=== PATIENT | female | born 1945 | race African-American/Black ===

== ENCOUNTER 2018-11-06 06:48 | Emergency (ER) | payer MEDICARE ==
[2018-11-06 07:32] LABS: Absolute Lymphocytes (CBC) 0.6 K/uL (0.7-4.9); Eosinophils % 3.3 % (0-4.4); Hematocrit 36.1 % (36.0-45.0); Lymphocytes % 12.3 % (15.3-44.8); MPV 8.2 fL (7.6-11.3); Monocytes % 8.3 % (3.3-12.3); RBC Red Blood Cell Count 3.98 M/uL (3.86-4.86)
--- NOTE | 2018-11-06 07:32 | EKG ---
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
[2018-11-06 07:38] LABS: Protime INR 1.05
[2018-11-06 07:52] LABS: ALT/SGPT 26 U/L (12-78); AST/SGOT 42 U/L (15-37); Albumin 3.5 g/dL (3.4-5.0); Alkaline Phosphatase 96 U/L (45-117); BUN Blood Urea Nitrogen 14 mg/dL (7-18); Bicarbonate 22 mmol/L (21-32); Bilirubin Direct 0.2 mg/dL (0-0.2); Bilirubin Total 0.6 mg/dL (0.2-1.0); Glucose Level 103 mg/dL (74-106); Magnesium 2.1 mg/dL (1.8-2.4); NT PRO-BNP 214 pg/mL (<125); Potassium 4.3 mmol/L (3.5-5.1); Protein, Total 7.2 g/dL (6.4-8.2); Sodium Level 139 mmol/L (136-145); Troponin (Emerg Dept Use Only) < 0.02 ng/mL (0.0-0.045)
--- NOTE | 2018-11-06 08:46 | RAD REPORT ---
EXAM DESCRIPTION: RAD - Chest Single View - 11/06/2018 7:17 am CLINICAL HISTORY: Chest pain, shortness of breath COMPARISON: November 2013 TECHNIQUE: AP portable chest image was obtained 0710 hours . FINDINGS: Lungs are clear. Heart and vasculature are normal. No measurable pleural effusion and no p neumothorax. No acute bony abnormality seen. No acute aortic findings suspected. IMPRESSION: No acute cardiopulmonary process. Chest is not substantially different from comparison.
--- NOTE | 2018-11-06 10:00 | EDPHYS ---
Physician Documentation [facility] Name: Trang Burr Age: 73 yrs Sex: Female : 1945 Arrival Date: 11/06/2018 Time: 06:50 Bed 5 Private MD: Wilner Damon E ED Physician Chucho Roger HPI: 11/06 06:59 This 73 yrs old Black Female presents to ER via EMS with complaints of Nausea/Vomiting. pm1 06:59 Onset: The symptoms/episode began/occurred nausea with one episode of vomiting today. pm1 Possible causes: unknown. The symptoms are aggravated by nothing. The symptoms are alleviated by nothing. Patient presenting today with complaints of shortness of breath for 3 weeks. Constant chest pain for 2 weeks. Onset of vomiting x 1 with nausea this AM. Patient with appointment with Dr. Jacob at 0845 today but felt that she would not be able to go. Historical: - Allergies: 06:56 No Known Allergies; fc - Home Meds: 06:56 Bystolic 10 mg oral tab 1 tab once daily [Active]; 3 diff. eye drops [Active]; fc - PMHx: 06:56 Cellulitis; Hypertension; Lymphadema; Colon Cancer; fc - PSHx: 06:56 Bowel resection; colostomy with reversal; fc - Immunization history:: Last tetanus immunization: unknown. - Social history:: Smoking status: Patient/guardian denies using tobacco, Patient/guardian denies using alcohol, street drugs. - Ebola Screening: : Patient negative for fever greater than or equal to 101.5 degrees Fahrenheit, and additional compatible Ebola Virus Disease symptoms Patient denies exposure to infectious person Patient denies travel to an Ebola-affected area in the 21 days before illness onset. ROS: 06:59 Constitutional: Negative for fever, chills, and weight loss, Eyes: Negative for injury, pm1 pain, redness, and discharge, ENT: Negative for injury, pain, and discharge, Neck: Negative for injury, pain, and swelling. 06:59 Back: Negative for injury and pain, : Negative for injury, bleeding, discharge, and swelling, MS/Extremity: Negative for injury and deformity, Skin: Negative for injury, rash, and discoloration, Neuro: Negative for headache, weakness, numbness, tingling, and seizure. 06:59 Cardiovascular: Positive for chest pain, Negative for edema, orthopnea, palpitations. 06:59 Respiratory: Positive for shortness of breath, Negative for cough, sputum production, wheezing. 06:59 Abdomen/GI: Positive for nausea and vomiting, Negative for abdominal pain, diarrhea, constipation. Exam: 06:59 Constitutional: This is a well developed, well nourished patient who is awake, alert, pm1 and in no acute distress. Head/Face: Normocephalic, atraumatic. Eyes: Pupils equal round and reactive to light, extra-ocular motions intact. Lids and lashes normal. Conjunctiva and sclera are non-icteric and not injected. Cornea within normal limits. Periorbital areas with no swelling, redness, or edema. ENT: Nares patent. No nasal discharge, no septal abnormalities noted. Tympanic membranes are normal and external auditory canals are clear. Oropharynx with no redness, swelling, or masses, exudates, or evidence of obstruction, uvula midline. Mucous membranes moist. Neck: Trachea midline, no thyromegaly or masses palpated, and no cervical lymphadenopathy. Supple, full range of motion without nuchal rigidity, or vertebral point tenderness. No Meningismus. Chest/axilla: Normal chest wall appearance and motion. Nontender with no deformity. No lesions are appreciated. Cardiovascular: Regular rate and rhythm with a normal S1 and S2. No gallops, murmurs, or rubs. Normal PMI, no JVD. No pulse deficits. Respiratory: Lungs have equal breath sounds bilaterally, clear to auscultation and percussion. No rales, rhonchi or wheezes noted. No increased work of breathing, no retractions or nasal flaring. Abdomen/GI: Soft, non-tender, with normal bowel sounds. No distension or tympany. No guarding or rebound. No evidence of tenderness throughout. Back: No spinal tenderness. No costovertebral tenderness. Full range of motion. Skin: Warm, dry with normal turgor. Normal color with no rashes, no lesions, and no evidence of cellulitis. MS/ Extremity: Pulses equal, no cyanosis. Neurovascular intact. Full, normal range of motion. 06:59 Neuro: Orientation: is normal, Motor: is normal, Sensation: is normal, no obvious gross deficits. Vital Signs: 06:45 BP 134 / 42; Pulse 98; Resp 18; Temp 97.5(O); Pulse Ox 98% on R/A; Weight 108.86 kg fc (R); Height 5 ft. 1 in. (154.94 cm) (R); Pain 0/10; 07:45 BP 140 / 47; Pulse 82; Resp 13; Pulse Ox 100% ; bp 08:45 BP 103 / 59; Pulse 78; Resp 14; Pulse Ox 100% ; bp 09:45 BP 132 / 64; Pulse 81; Resp 14; Pulse Ox 100% ; bp 11:26 BP 158 / 73; Pulse 88; Resp 14; Temp 98; Pulse Ox 98% ; bp 06:45 Body Mass Index 45.35 (108.86 kg, 154.94 cm) fc MDM: 06:56 Patient medically screened. [facility] 08:00 Data reviewed: vital signs. Data interpreted: Pulse oximetry: on room air is 98 %. pm1 Interpretation: normal. 09:17 Counseling: I had a detailed discussion with the patient and/or guardian regarding: the pm1 historical points, exam findings, and any diagnostic results supporting the discharge/admit diagnosis, lab results, radiology results, the need for outpatient follow up, to return to the emergency department if symptoms worsen or persist or if there are any questions or concerns that arise at home. 11/06 07:02 Order name: Basic Metabolic Panel pm1 11/06 07:02 Order name: CBC with Diff pm1 11/06 07:02 Order name: LFT's pm1 11/06 07:02 Order name: Magnesium pm1 11/06 07:02 Order name: NT PRO-BNP; Complete Time: 08:06 pm1 11/06 07:02 Order name: PT-INR; Complete Time: 08:06 pm1 11/06 07:02 Order name: Troponin (emerg Dept Use Only); Complete Time: 08:06 pm1 11/06 07:02 Order name: XRAY Chest (1 view); Complete Time: 08:48 pm1 11/06 07:02 Order name: EKG; Complete Time: 07:04 pm1 11/06 07:02 Order name: Basic Metabolic Panel; Complete Time: 08:06 EDMS 11/06 07:03 Order name: CBC with Automated Diff; Complete Time: 08:06 EDMS 11/06 07:03 Order name: Liver (Hepatic) Function; Complete Time: 08:06 EDDC 11/06 07:04 Order name: Magnesium; Complete Time: 08:06 EDDC 11/06 07:02 Order name: Cardiac monitoring; Complete Time: 07:39 pm1 11/06 07:02 Order name: EKG - Nurse/Tech; Complete Time: 07:22 pm1 11/06 07:02 Order name: IV Saline Lock; Complete Time: 07:38 pm1 11/06 07:02 Order name: Labs collected and sent; Complete Time: 07:39 pm1 11/06 07:02 Order name: O2 Per Protocol; Complete Time: 07:39 pm1 11/06 07:02 Order name: O2 Sat Monitoring; Complete Time: 07:39 pm1 EC:01 Rate is 93 beats/min. Rhythm is regular. No Q waves. T waves are Normal. No ST changes pm1 noted. Clinical impression: Normal ECG. Administered Medications: 09:30 Drug: NS 0.9% 500 ml Route: IV; Rate: bolus; Site: right antecubital; bp 11:29 Follow up: IV Status: Completed infusion; IV Intake: 500ml bp Disposition: 11/06/18 09:59 Discharged to Home. Impression: Chest pain, unspecified, Weakness, Shortness of breath. - Condition is Stable. - Discharge Instructions: Nonspecific Chest Pain, Shortness of Breath, Weakness. - Medication Reconciliation Form, Thank You Letter, Antibiotic Education, Prescription Opioid Use form. - Follow up: Emergency Department; When: As needed; Reason: Worsening of condition. Follow up: Private Physician; When: 2 - 3 days; Reason: Recheck today's complaints, Continuance of care, Re-evaluation by your physician. - Problem is new. - Symptoms have improved. Addendum: 11/07/2018 13:56 Co-signature as Attending Physician, Chucho Roger MD I agree with the assessment and c harris plan of care. Signatures: Dispatcher [employer] Chucho Pace MD MD cha Chretien, Felicia, RN RN fc Connor Padilla, ADAM MUD TEMPERER pm1 Mu Rae RN RN bp Corrections: (The following items were deleted from the chart) 11/06 09:59 09:59 11/06/2018 09:59 Discharged to Home. Impression: Chest pain, unspecified; pm1 Weakness. Condition is Stable. Forms are Medication Reconciliation Form, Thank You Letter, Antibiotic Education, Prescription Opioid Use. Follow up: Emergency Department; When: As needed; Reason: Worsening of condition. Follow up: Private Physician; When: 2 - 3 days; Reason: Recheck today's complaints, Continuance of care, Re-evaluation by your physician. Problem is new. Symptoms have improved. pm1 11:30 09:59 11/06/2018 09:59 Discharged to Home. Impression: Chest pain, unspecified; bp Weakness; Shortness of breath. Condition is Stable. Forms are Medication Reconciliation Form, Thank You Letter, Antibiotic Education, Prescription Opioid Use. Follow up: Emergency Department; When: As needed; Reason: Worsening of condition. Follow up: Private Physician; When: 2 - 3 days; Reason: Recheck today's complaints, Continuance of care, Re-evaluation by your physician. Problem is new. Symptoms have improved. pm1
--- NOTE | 2018-11-06 10:00 | ER ---
[facility] Name: Trang Burr Age: 73 yrs Sex: Female : 1945 Arrival Date: 11/06/2018 Time: 06:50 Bed 5 Private MD: Wilner Damon E Diagnosis: Chest pain, unspecified;Weakness;Shortness of breath Presentation: 11/06 06:45 Presenting complaint: Patient states: that she has been having shortness of breath with fc exertion, decreased appetite, occasional tightness in chest and then started to have nausea with one episode of vomiting this am. Also having weakness. Transition of care: patient was not received from another setting of care. Onset of symptoms was September 2018. Risk Assessment: Do you want to hurt yourself or someone else? Patient reports no desire to harm self or others. Initial Sepsis Screen: Does the patient meet any 2 criteria? HR > 90 bpm. Yes Does the patient have a suspected source of infection? No. Patient's initial sepsis screen is negative. Care prior to arrival: None. 06:45 Method Of Arrival: EMS: [facility] 06:45 Acuity: REYNALDO 3 fc Triage Assessment: 07:00 General: Appears in no apparent distress. comfortable, obese, Behavior is calm, bp cooperative, appropriate for age, RECD REPORT FROM IZZY ADAMES. Pain: Complains of pain in chest. EENT: No deficits noted. Neuro: Level of Consciousness is awake, alert, obeys commands, Oriented to person, place, time, situation, Appropriate for age. Cardiovascular: Rhythm is sinus rhythm. Respiratory: Reports shortness of breath at rest Airway is patent Respiratory effort is even, unlabored, Respiratory pattern is regular, symmetrical. GI: Reports nausea. : No signs and/or symptoms were reported regarding the genitourinary system. Derm: No deficits noted. Musculoskeletal: Circulation, motion, and sensation intact. Range of motion: intact in all extremities. Historical: - Allergies: 06:56 No Known Allergies; fc - Home Meds: :56 Bystolic 10 mg oral tab 1 tab once daily [Active]; 3 diff. eye drops [Active]; fc - PMHx: 06:56 Cellulitis; Hypertension; Lymphadema; Colon Cancer; fc - PSHx: 06:56 Bowel resection; colostomy with reversal; fc - Immunization history:: Last tetanus immunization: unknown. - Social history:: Smoking status: Patient/guardian denies using tobacco, Patient/guardian denies using alcohol, street drugs. - Ebola Screening: : Patient negative for fever greater than or equal to 101.5 degrees Fahrenheit, and additional compatible Ebola Virus Disease symptoms Patient denies exposure to infectious person Patient denies travel to an Ebola-affected area in the 21 days before illness onset. Screenin:45 Abuse screen: Denies threats or abuse. Nutritional screening: No deficits noted. Tuberculosis screening: No symptoms or risk factors identified. 07:00 Fall Risk No fall in past 12 months (0 pts). No secondary diagnosis (0 pts). No IV (0 bp pts). Ambulatory Aid- Crutches/Cane/Walker (15 pts). Gait- Weak (10 pts.). Mental Status- Oriented to own ability (0 pts). Total San Fall Scale indicates Low Risk Score (25-44 pts). Fall prevention measures have been instituted. Side Rails Up X 2 Placed close to Nursing Station Frequent Obs/Assesments occuring As available Patient and Family Educated on Fall Prevention Program and strategies. Assessment: 07:00 General: SEE TRIAGE NOTE. bp 07:45 Reassessment: ALL CURRENT ORDERS COMPLETED, RESULT SPENDING. bp 09:45 Reassessment: PT STATES DEHYDRATED, REQUESTING IVF. PROVIDER NOTIFIED. bp 11:26 Reassessment: IVF COMPLETED, PT D/C HOME VIA W/C WITH CAREGIVER, DX WITH NONSPECIFIC CP.bp Vital Signs: 06:45 BP 134 / 42; Pulse 98; Resp 18; Temp 97.5(O); Pulse Ox 98% on R/A; Weight 108.86 kg (R); Height 5 ft. 1 in. (154.94 cm) (R); Pain 0/10; 07:45 BP 140 / 47; Pulse 82; Resp 13; Pulse Ox 100% ; bp 08:45 BP 103 / 59; Pulse 78; Resp 14; Pulse Ox 100% ; bp 09:45 BP 132 / 64; Pulse 81; Resp 14; Pulse Ox 100% ; bp 11:26 BP 158 / 73; Pulse 88; Resp 14; Temp 98; Pulse Ox 98% ; bp 06:45 Body Mass Index 45.35 (108.86 kg, 154.94 cm) ED Course: 06:45 Arm band placed on Patient placed in an exam room, on a stretcher. fc 06:45 Patient has correct armband on for positive identification. Placed in gown. Bed in low fc position. Call light in reach. Side rails up X2. vehicle monitor technician on. Pulse ox on. NIBP on. 06:45 No provider procedures requiring assistance completed. fc 06:50 Patient arrived in ED. fc 06:51 Wilner Damon MD is Private Physician. fc 06:51 [facility]. pm1 06:51 Chucho Roger MD is Attending Physician. pm1 06:52 Triage completed. fc 07:00 IV discontinued, intact, bleeding controlled, No redness/swelling at site. Pressure bp dressing applied. 07:13 X-ray completed. Portable x-ray completed in exam room. Patient tolerated procedure jb2 well. 07:17 XRAY Chest (1 view) In Process Unspecified. EDMS 07:20 Inserted saline lock: 20 gauge in right antecubital area, using aseptic technique. bp Blood collected. 07:38 Mu Rae, RN is Primary Nurse. bp Administered Medications: 09:30 Drug: NS 0.9% 500 ml Route: IV; Rate: bolus; Site: right antecubital; bp 11:29 Follow up: IV Status: Completed infusion; IV Intake: 500ml bp Intake: 11:29 IV: 500ml; Total: 500ml. bp Outcome: 07:00 Discharged to home via wheelchair, with family. 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 Demonstrated understanding of instructions, follow-up care. 09:59 Discharge ordered by . pm1 11:30 Patient left the ED. bp Signatures: Dispatcher [employer] EDMS Asif Kenney jb2 Penelope Perez RN RN Connor Padilla NP STEEL DIVISION SUPERVISOR pm1 Mu Rae, ZACARIAS ADAMES bp
[2018-11-06] MEDS ORDERED: NA CHLORIDE 0.9% 500 ML ONE (10:09)
[2018-11-06 11:43] VITALS: BP 158/73; TEMP 98; O2SAT 98
== END 2018-11-06 11:30 | disposition home or self-care (01) ==
LOC: ER 06:48
DX: R07.9 Chest pain, unspecified (principal); R53.1 Weakness; R06.02 Shortness of breath; I10 Essential (primary) hypertension; Z85.038 Personal history of other malignant neoplasm of large intestine
CPT/HCPCS: 36415; 71045; 80048; 80076; 83735; 83880; 84484; 85025; 85610; 93005; 96360; 96361; 99284

== ENCOUNTER 2018-11-21 12:11 | Inpatient (IN) | payer MEDICARE ==
[2018-11-21] MEDS ORDERED: NA CHLORIDE 0.9% 500 ML ONE (13:38)
[2018-11-21] MEDS ORDERED: NA CHLORIDE 0.9% 1,000 ML ONE (13:38)
[2018-11-21 13:42] LABS: Absolute Lymphocytes (CBC) 0.6 K/uL (0.7-4.9); Basophils % 0.7 % (0-1.3); Eosinophils % 2.1 % (0-4.4); Hematocrit 39.6 % (36.0-45.0); Lymphocytes % 9.1 % (15.3-44.8); Monocytes % 7.7 % (3.3-12.3); Protime INR 1.01; RBC Red Blood Cell Count 4.35 M/uL (3.86-4.86)
[2018-11-21 13:57] LABS: ALT/SGPT 39 U/L (12-78); AST/SGOT 73 U/L (15-37); Albumin 3.6 g/dL (3.4-5.0); Alkaline Phosphatase 105 U/L (45-117); BUN Blood Urea Nitrogen 16 mg/dL (7-18); Bicarbonate 22 mmol/L (21-32); Bilirubin Direct 0.4 mg/dL (0-0.2); Bilirubin Total 1.1 mg/dL (0.2-1.0); Glucose Level 84 mg/dL (74-106); Lipase 49 U/L (73-393); Magnesium 2.3 mg/dL (1.8-2.4); NT PRO-BNP 168 pg/mL (<125); Potassium 4.3 mmol/L (3.5-5.1); Protein, Total 7.6 g/dL (6.4-8.2); Sodium Level 139 mmol/L (136-145); Troponin (Emerg Dept Use Only) < 0.02 ng/mL (0.0-0.045)
[2018-11-21] MEDS ORDERED: ONDANSETRON 4 MG/2 ML VIAL ONE (14:35)
--- NOTE | 2018-11-21 14:36 | EDPHYS ---
Physician Documentation [facility] Name: Trang Burr Age: 73 yrs Sex: Female : 1945 Arrival Date: 11/21/2018 Time: 12:15 Bed 2 Private MD: ONI Physician Chucho Roger HPI: 11/21 13:03 This 73 yrs old Black Female presents to ER via EMS with complaints of weak, nausea, robert vomiting and abdominal pain. 13:03 The patient presents to the emergency department with nausea, vomiting, abdominal pain, robert of the right upper quadrant, left upper quadrant, right lower quadrant and left lower quadrant. Onset: The symptoms/episode began/occurred 3 day(s) ago. Possible causes: unknown. The symptoms are aggravated by food , The symptoms are alleviated by remaining still. weak, anorexia. Associated signs and symptoms: Pertinent positives: anorexia, nausea. Onset: The symptoms/episode began/occurred 1 month(s) ago. Severity of symptoms: At their worst the symptoms were mild in the emergency department the symptoms are unchanged. The patient has experienced similar episodes in the past, multiple times. Historical: - Allergies: 12:19 Ampicillin; aj - Home Meds: 12:19 3 diff. eye drops [Active]; Bystolic 10 mg Oral tab 1 tab once daily [Active]; aj - PMHx: 12:19 Cellulitis; colon cancer; Hypertension; Lymphadema; aj - PSHx: 12:19 Bowel resection; colostomy with reversal; aj - Immunization history:: Adult Immunizations up to date. - Social history:: Smoking status: Patient/guardian denies using tobacco. - Ebola Screening: : Patient negative for fever greater than or equal to 101.5 degrees Fahrenheit, and additional compatible Ebola Virus Disease symptoms Patient denies exposure to infectious person Patient denies travel to an Ebola-affected area in the 21 days before illness onset No symptoms or risks identified at this time. - Family history:: not pertinent. ROS: 13:03 Constitutional: Negative for fever, chills, and weight loss, Eyes: Negative for injury, robert pain, redness, and discharge, ENT: Negative for injury, pain, and discharge, Neck: Negative for injury, pain, and swelling, Cardiovascular: Negative for chest pain, palpitations, and edema, Respiratory: Negative for shortness of breath, cough, wheezing, and pleuritic chest pain, Back: Negative for injury and pain, : Negative for injury, bleeding, discharge, and swelling, MS/Extremity: Negative for injury and deformity, Skin: Negative for injury, rash, and discoloration, Psych: Negative for depression, anxiety, suicide ideation, homicidal ideation, and hallucinations, Allergy/Immunology: Negative for hives, rash, and allergies, Endocrine: Negative for neck swelling, polydipsia, polyuria, polyphagia, and marked weight changes. 13:03 Abdomen/GI: Positive for nausea and vomiting, anorexia. 13:03 Neuro: Positive for weakness. Exam: 13:03 Constitutional: This is a well developed, well nourished patient who is awake, alert, robert and in no acute distress. Head/Face: Normocephalic, atraumatic. Eyes: Pupils equal round and reactive to light, extra-ocular motions intact. Lids and lashes normal. Conjunctiva and sclera are non-icteric and not injected. Cornea within normal limits. Periorbital areas with no swelling, redness, or edema. ENT: Nares patent. No nasal discharge, no septal abnormalities noted. Tympanic membranes are normal and external auditory canals are clear. Oropharynx with no redness, swelling, or masses, exudates, or evidence of obstruction, uvula midline. Mucous membranes moist. Neck: Trachea midline, no thyromegaly or masses palpated, and no cervical lymphadenopathy. Supple, full range of motion without nuchal rigidity, or vertebral point tenderness. No Meningismus. Chest/axilla: Normal chest wall appearance and motion. Nontender with no deformity. No lesions are appreciated. Cardiovascular: Regular rate and rhythm with a normal S1 and S2. No gallops, murmurs, or rubs. Normal PMI, no JVD. No pulse deficits. Respiratory: Lungs have equal breath sounds bilaterally, clear to auscultation and percussion. No rales, rhonchi or wheezes noted. No increased work of breathing, no retractions or nasal flaring. Abdomen/GI: Soft, non-tender, with normal bowel sounds. No distension or tympany. No guarding or rebound. No evidence of tenderness throughout. Back: No spinal tenderness. No costovertebral tenderness. Full range of motion. Female : Normal external genitalia. Skin: Warm, dry with normal turgor. Normal color with no rashes, no lesions, and no evidence of cellulitis. MS/ Extremity: Pulses equal, no cyanosis. Neurovascular intact. Full, normal range of motion. Neuro: Awake and alert, GCS 15, oriented to person, place, time, and situation. Cranial nerves II-XII grossly intact. Motor strength 5/5 in all extremities. Sensory grossly intact. Cerebellar exam normal. Normal gait. Psych: Awake, alert, with orientation to person, place and time. Behavior, mood, and affect are within normal limits. 13:03 Musculoskeletal/extremity: Extremities: all appear grossly normal, with no appreciated pain with palpation, ROM: full passive range of motion, limited active range of motion, Circulation is intact in all extremities. Sensation intact. Compartment Syndrome exam of affected extremity: is normal. DVT Exam: No signs of deep vein thrombosis. no pain, no swelling, no tenderness, negative Homans' sign noted on exam, no appreciated bluish discoloration, no erythema, no increased warmth. Vital Signs: 12:17 BP 139 / 65; Pulse 87; Resp 20; Temp 97.4; Pulse Ox 100% on R/A; Weight 113.4 kg; ph 14:22 BP 138 / 75; Pulse 87; Resp 14; Pulse Ox 99% on R/A; aj 15:29 BP 143 / 80; Pulse 88; Resp 20; Temp 97.5; Pulse Ox 99% on R/A; ph MDM: 12:44 Patient medically screened. [facility] 13:03 Data reviewed: vital signs, nurses notes, lab test result(s), EKG, radiologic studies, [facility] plain films. 11/21 13:02 Order name: Basic Metabolic Panel; Complete Time: 14:08 [facility] 11/21 13:02 Order name: CBC with Diff [facility] 11/21 13:02 Order name: LFT's; Complete Time: 14:08 [facility] 11/21 13:02 Order name: Magnesium; Complete Time: 14:08 [facility] 11/21 13:02 Order name: NT PRO-BNP; Complete Time: 14:08 [facility] 11/21 13:02 Order name: PT-INR; Complete Time: 14:26 [facility] 11/21 13:02 Order name: Troponin (emerg Dept Use Only); Complete Time: 14:08 [facility] 11/21 13:02 Order name: Lipase; Complete Time: 14:08 [facility] 11/21 13:02 Order name: Abdomen Acute Series XRAY [facility] 11/21 13:02 Order name: Urine Culture [facility] 11/21 15:14 Order name: Urine Dipstick--Ancillary (enter results) 3 11/21 15:58 Order name: CBC Smear Scan [facility] 11/21 13:02 Order name: EKG; Complete Time: 13:05 [facility] 11/21 13:02 Order name: Cardiac monitoring; Complete Time: 13:27 [facility] 11/21 13:02 Order name: EKG - Nurse/Tech; Complete Time: 13:27 [facility] 11/21 13:02 Order name: IV Saline Lock; Complete Time: 13:27 [facility] 11/21 13:02 Order name: Labs collected and sent; Complete Time: 13:27 [facility] 11/21 13:02 Order name: O2 Per Protocol; Complete Time: 13:27 [facility] 11/21 13:02 Order name: O2 Sat Monitoring; Complete Time: 13:27 [facility] 11/21 13:02 Order name: Urine Dipstick-Ancillary (obtain specimen); Complete Time: 14:48 [facility] Administered Medications: 13:26 Drug: NS 0.9% 1000 ml Route: IV; Rate: 125 ml/hr; Site: right antecubital; aj 15:50 Follow up: Response: No adverse reaction; IV Status: Infusion continued upon admission ph 13:26 Drug: NS 0.9% 500 ml Route: IV; Rate: bolus; Site: right antecubital; aj 14:10 Follow up: Response: No adverse reaction; IV Status: Completed infusion; IV Intake: ph 500ml Disposition: 11/21/18 14:35 Hospitalization ordered by Arron Zhang for Inpatient Admission. Preliminary diagnosis are Anorexia, Weakness, Vomiting, Malaise and fatigue, Abdominal tenderness. - Bed requested for Telemetry/MedSurg (Inpatient). - Status is Inpatient Admission. iw - Condition is Fair. - Problem is new. - Symptoms have improved. UTI on Admission? No Signatures: Dispatcher [employer] Dedra Virgen RN Kinjal Owens RN RN aj Anderson, Corey, MD MD cha Williams, Irene, RN RN iw Hall, Patricia RN ph Corrections: (The following items were deleted from the chart) 15:24 14:35 Hospitalization Ordered by Arron Zhang DO for Inpatient Admission. Preliminary dw diagnosis is Anorexia; Weakness; Vomiting; Malaise and fatigue; Abdominal tenderness. Bed requested for Telemetry/MedSurg (Inpatient). Status is Inpatient Admission. Condition is Fair. Problem is new. Symptoms have improved. UTI on Admission? No. robert 16:05 15:24 11/21/2018 14:35 Hospitalization Ordered by Arron Zhang DO for Inpatient iw Admission. Preliminary diagnosis is Anorexia; Weakness; Vomiting; Malaise and fatigue; Abdominal tenderness. Bed requested for Telemetry/MedSurg (Inpatient). Status is Inpatient Admission. Condition is Fair. Problem is new. Symptoms have improved. UTI on Admission? No. dw
--- NOTE | 2018-11-21 14:36 | ER ---
Nurse's Notes [facility] Name: Trang Burr Age: 73 yrs Sex: Female : 1945 Arrival Date: 11/21/2018 Time: 12:15 Bed 2 Private MD: Diagnosis: Anorexia;Weakness;Vomiting;Malaise and fatigue;Abdominal tenderness Presentation: 11/21 12:16 Presenting complaint: Patient states: Loss of appetite for 3 weeks. Seen in this ER aj last week for same complaint and discharged with referral to PCP. Patient reports symptoms are persisting and she still has no appetite and is nauseated. Transition of care: patient was not received from another setting of care. Onset of symptoms was October 27, 2018. Risk Assessment: Do you want to hurt yourself or someone else? Patient reports no desire to harm self or others. Initial Sepsis Screen: Does the patient meet any 2 criteria? No. Patient's initial sepsis screen is negative. Does the patient have a suspected source of infection? No. Patient's initial sepsis screen is negative. Care prior to arrival: None. 12:16 Method Of Arrival: EMS: [facility] 12:16 Acuity: REYNALDO 3 aj Triage Assessment: 12:19 General: Appears in no apparent distress. comfortable, obese, Behavior is calm, aj cooperative, appropriate for age. Pain: Denies pain. Neuro: Level of Consciousness is awake, alert, obeys commands, Oriented to person, place, time, situation. Respiratory: Reports shortness of breath Airway is patent Trachea midline Respiratory effort is even, unlabored, Respiratory pattern is regular, symmetrical. GI: Abdomen is obese, Reports anorexia. Derm: Skin is intact, is healthy with good turgor, Skin is pink, warm \T\ dry. normal. Historical: - Allergies: 12:19 Ampicillin; aj - Home Meds: 12:19 3 diff. eye drops [Active]; Bystolic 10 mg Oral tab 1 tab once daily [Active]; aj - PMHx: 12:19 Cellulitis; colon cancer; Hypertension; Lymphadema; aj - PSHx: 12:19 Bowel resection; colostomy with reversal; aj - Immunization history:: Adult Immunizations up to date. - Social history:: Smoking status: Patient/guardian denies using tobacco. - Ebola Screening: : Patient negative for fever greater than or equal to 101.5 degrees Fahrenheit, and additional compatible Ebola Virus Disease symptoms Patient denies exposure to infectious person Patient denies travel to an Ebola-affected area in the 21 days before illness onset No symptoms or risks identified at this time. - Family history:: not pertinent. Screenin:21 Abuse screen: Denies threats or abuse. Denies injuries from another. Nutritional aj screening: No deficits noted. Tuberculosis screening: No symptoms or risk factors identified. Fall Risk None identified. Assessment: 13:20 Reassessment: No changes from previously documented assessment. aj 14:30 Reassessment: Patient appears in no apparent distress at this time. Patient and/or ph family updated on plan of care and expected duration. Pain level reassessed. Patient is alert, oriented x 3, equal unlabored respirations, skin warm/dry/pink. 15:43 Reassessment: Patient appears in no apparent distress at this time. Patient and/or ph family updated on plan of care and expected duration. Pain level reassessed. Patient is alert, oriented x 3, equal unlabored respirations, skin warm/dry/pink. Report called to Mk ADAMES on second floor. Vital Signs: 12:17 BP 139 / 65; Pulse 87; Resp 20; Temp 97.4; Pulse Ox 100% on R/A; Weight 113.4 kg; ph 14:22 BP 138 / 75; Pulse 87; Resp 14; Pulse Ox 99% on R/A; aj 15:29 BP 143 / 80; Pulse 88; Resp 20; Temp 97.5; Pulse Ox 99% on R/A; ph ED Course: 12:15 Patient arrived in ED. ph 12:15 Kinjal Molina, RN is Primary Nurse. aj 12:18 Triage completed. aj 12:19 Arm band placed on left wrist. Patient placed in an exam room, on a stretcher, on employment officer, on pulse oximetry. 12:44 Chucho Roger MD is Attending Physician. [facility] 13:21 Patient has correct armband on for positive identification. Bed in low position. Call aj light in reach. Side rails up X2. Adult w/ patient. Pulse ox on. NIBP on. 13:21 Inserted saline lock: 20 gauge in right antecubital area, using aseptic technique. aj Blood collected. 14:15 Abdomen Acute Series XRAY In Process Unspecified. EDMS 14:30 Prezas, Arron, DO is Hospitalizing Provider. robert 14:48 Straight cath inserted, using sterile technique, 16 Fr. Specimen obtained. Returned aj michele urine. Patient tolerated well. 15:29 No provider procedures requiring assistance completed. Patient admitted, IV remains in ph place. Administered Medications: 13:26 Drug: NS 0.9% 1000 ml Route: IV; Rate: 125 ml/hr; Site: right antecubital; aj 15:50 Follow up: Response: No adverse reaction; IV Status: Infusion continued upon admission ph 13:26 Drug: NS 0.9% 500 ml Route: IV; Rate: bolus; Site: right antecubital; aj 14:10 Follow up: Response: No adverse reaction; IV Status: Completed infusion; IV Intake: ph 500ml Intake: 14:10 IV: 500ml; Total: 500ml. ph Outcome: 14:35 Decision to Hospitalize by Provider. robert 16:05 Patient left the ED. iw Signatures: Dispatcher [employer] Kinjal Salamanca, RN Chucho Frederick MD MD cha Williams, Irene, RN ZACARIAS Rocio Sarkar RN RN
--- NOTE | 2018-11-21 14:40 | RAD REPORT ---
EXAM DESCRIPTION: RAD - Abdomen Acute Series - 11/21/2018 2:18 pm CLINICAL HISTORY: Abdominal pain, loss of appetite, colon cancer history, history of bowel resection COMPARISON: AP chest November 06 FINDINGS: No acute lung parenchymal process. Chronic atelectasis or scarring present in the left bas e. No failure or volume overload. Heart size and pulmonary vasculature are normal. No pleural effusio n, pneumothorax or other acute cardiopulmonary process seen. Bowel gas pattern is nonspecific. No bowel obstruction, free air or other acute findings. No suspicio us calcifications. No other suspicious for significant findings. IMPRESSION: Chest examination shows no acute or suspicious finding. Nonspecific bowel gas pattern. No obstruction, free air or pneumatosis seen.
--- NOTE | 2018-11-21 15:20 | P.HP ---
Certification for Inpatient Patient admitted to: Observation With expected LOS: <2 Midnights Patient will require the following post-hospital care: Home Health Services Practitioner: I am a practitioner with admitting privileges, knowledge of patient current condition, hospital course, and medical plan of care. Services: Services provided to patient in accordance with Admission requirements found in Title 42 Section 412.3 of the Code of Federal Regulations Patient History Date of Service: 11/21/18 Primary Care Provider: Dr. Damon; Cardiology-Dr. Jacob Reason for admission: Weakness, nausea and vomiting History of Present Illness: 73-year-old female presented to the emergency room with weakness, nausea and vomiting. Patient has been having nausea and vomiting for the past several days. She has had poor appetite. Poor intake noted. Patient during this time has noted difficulty walking with increased falls. She reports being in the hospital ER on November 06 and sent home. Since that time she has been getting weak. Patient with underlying lymphedema, anemia, history of colon cancer and hypertension. In the ER patient was evaluated. Vital signs stable. No fever noted. Room-air saturations within normal range. White count 6.1, hemoglobin 12.6. Sodium 139 , potassium 4.3, BUN of 14, creatinine 1.24 with a GFR 51. Glucose 84. Troponin unremarkable. BMP unremarkable. Acute abdominal series showed no acute findings. Patient admitted for observation. When I saw the patient in the ER, caregiver was at bedside. Patient appears stable at this time. Patient does not appear septic. She does appeared dry and dehydrated. Patient reports that she is mainly bed-bound at this time. It has been quite some time likely over a month since she is walked on rolling. She has used a walker in the past. Allergies ampicillin Adverse Reaction (Severe, Verified 12/15/13 14:53) Nausea/Vomiting No Known Allergies Allergy (Uncoded 03/20/17 21:07) Unknown Home medications list reviewed: Yes Home Medications: Bimatoprost [Lumigan Opthalmic Drops*] 2.5 ml OP BEDTIME 12/15/13 Nebivolol HCl [Bystolic*] 5 mg PO DAILY 12/15/13 Parsley/Garlic [Garlic & Parsley Tablet] 1 each PO DAILY 12/15/13 Muncy-3 Fatty Acids/Fish Oil [Fish Oil 1,000 mg Softgel] 1 each PO DAILY Dorzolamide HCl/Timolol Maleat [Cosopt Eye Drops] 10 ml EACH EYE BID 04/24/17 traMADol HCL [Ultram] 50 mg PO Q6H PRN 04/24/17 - Past Medical/Surgical History Diabetic: No -: Colon Ca (2002) -: Rectal Ca (2012) -: Glaucoma -: Hypertension -: Lymphedema -: Illiostomy (2012) -: Stents placed Bilateral eyes -: -: Reanastomosis Psychosocial/ Personal History: Patient lives at home. She has caregivers. No home health or physical therapy. - Family History Family History: Reviewed- Non-Contributory - Social History Smoking Status: Never smoker Alcohol use: No CD- Drugs: No Caffeine use: Yes Place of Residence: Home Review of Systems General: Weakness, As per HPI Eyes: Unremarkable ENT: Unremarkable Respiratory: Unremarkable Cardiovascular: Unremarkable Gastrointestinal: Nausea, Vomiting, As per HPI Genitourinary: Unremarkable Musculoskeletal: As per HPI Integumentary: Unremarkable Neurological: Unremarkable Lymphatics: Unremarkable Physical Examination - Physical Exam General: Alert, In no apparent distress, Oriented x3, Cooperative HEENT: Atraumatic, Normocephalic, Other (Dry mucous membranes) Neck: Supple, No Thyromegaly Respiratory: Clear to auscultation bilaterally, Normal air movement Cardiovascular: Normal pulses, Regular rate/rhythm Gastrointestinal: Normal bowel sounds, Soft and benign, Non-distended, No tenderness, No masses, No rebound, No guarding, Other (Patient morbidly obese) Integumentary: No tenderness/swelling, No erythema, No warmth, No cyanosis, Other (Chronic lymphedema to the lower extremities. Dry skin noted throughout) Neurological: Normal speech, Normal strength at 5/5 x4 extr, Normal tone, Normal affect - Studies Laboratory Data (last 24 hrs) 11/21/18 13:17: PT 11.9, INR 1.01 11/21/18 13:17: WBC 6.1, Hgb 12.6, Hct 39.6, Plt Count TOWEL SEWER 11/21/18 13:17: Sodium 139, Potassium 4.3, BUN 16, Creatinine 1.24, Glucose 84, Magnesium 2.3, Total Bilirubin 1.1 H, AST 73 H, ALT 39, Alkaline Phosphatase 105 , Lipase 49 L Assessment and Plan - Plan Impression: Nausea, vomiting and poor intake likely from malnutrition Hypertension Chronic lymphedema History of colon cancer Morbid obesity Plan: Patient will be admitted for observation. Will start IV fluids. No evidence of infection is noted. Will restart blood pressure medication. Will monitor electrolytes closely. Will have physical therapy and occupational therapy evaluate patient. Will try to make arrangements for home health and physical therapy at discharge. This will likely occur tomorrow. Patient has caregiver services. Case discussed at length with patient. Will discuss with family member. DVT prophylaxis-Lovenox initiated. Anticipate discharge home tomorrow with home health and physical therapy and continued caregiver services. Discharge Plan: Home Plan to discharge in: 24 Hours - Advance Directives Does patient have a Living Will: No Does patient have a Durable POA for Healthcare: No - Code Status/Comfort Care Code Status Assessed: No (Code status not assessed.) Time Spent Managing Pts Care (In Minutes): 55
[2018-11-21 15:30] LABS: Urine Blood TRACE (NEG); Urine Glucose NEGATIVE (NEG); Urine Protein 1+ (NEG)
[2018-11-21] MEDS ORDERED: ACETAMINOPHEN 500 MG TAB PO PRN (15:52)
[2018-11-21 15:55] LABS: Blood Morphology Comment NOT SEEN (NOT SEEN); Platelet Estimate ADEQ; Urine White Blood Cell Casts OK
--- NOTE | 2018-11-21 16:42 | EKG ---
Test Date: 2018-11-21 Test Time: 12:13:36 [employer]ire Specialist: MOUNIKA MEASUREMENT RESULTS: Intervals: Rate: 91 IL: 172 QRSD: 66 QT: 348 QTc: 428 [place]: P: 58 IL: 172 QRS: 12 T: 21 INTERPRETIVE STATEMENTS: Normal sinus rhythm Normal ECG Compared to ECG 11/06/2018 06:49:08 No significant changes Electronically Signed On 11-21-18 16:41:38 CDT by Daljit Lamb
[2018-11-21] MEDS: NA CHLORIDE 0.9% 1,000 ML IV SCH (16:45)
[2018-11-21 16:48] LABS: Thyroid Stimulating Hormone 2.48 uIU/mL (0.360-3.740)
[2018-11-21 16:57] VITALS: BMI 47.2
[2018-11-21] MEDS: ENOXAPARIN 40 MG/0.4 ML SQ SCH (18:13)
[2018-11-21] MEDS: ONDANSETRON 4 MG/2 ML VIAL IV PRN (18:44)
[2018-11-21] MEDS: FAMOTIDINE 20 MG TAB PO SCH (20:21)
[2018-11-21] MEDS: ENSURE ENLIVE 237 ML CAN PO SCH (20:21)
[2018-11-22] MEDS: ONDANSETRON 4 MG/2 ML VIAL IV PRN ×3 (00:27→18:06)
[2018-11-22 06:04] LABS: Absolute Lymphocytes (CBC) 0.8 K/uL (0.7-4.9); Basophils % 0.7 % (0-1.3); Eosinophils % 2.2 % (0-4.4); Lymphocytes % 14.5 % (15.3-44.8); MPV 8.8 fL (7.6-11.3); Monocytes % 10.5 % (3.3-12.3); RBC Red Blood Cell Count 3.71 M/uL (3.86-4.86)
[2018-11-22 06:22] LABS: Magnesium 2.3 mg/dL (1.8-2.4); Potassium 3.9 mmol/L (3.5-5.1)
[2018-11-22] MEDS: NA CHLORIDE 0.9% 1,000 ML IV SCH ×2 (08:27→11:52)
[2018-11-22] MEDS ORDERED: POTASSIUM CL SA 10 MEQ TAB PO ONE (09:00)
[2018-11-22] MEDS: ENOXAPARIN 40 MG/0.4 ML SQ SCH (09:50)
[2018-11-22] MEDS: FAMOTIDINE 20 MG TAB PO SCH ×2 (09:51→21:27)
[2018-11-22] MEDS: ASPIRIN EC 81 MG TAB PO SCH (09:51)
[2018-11-22] MEDS: NEBIVOLOL HCL 5 MG TAB PO SCH (09:51)
[2018-11-22] MEDS: ENSURE ENLIVE 237 ML CAN PO SCH ×3 (09:53→21:00)
--- NOTE | 2018-11-22 10:24 | P.PN ---
Subjective Date of Service: 11/22/18 Primary Care Provider: Dr. Damon; Cardiology-Dr. Jacob Chief Complaint: Weakness, nausea and vomiting Subjective: Other (Patient improved. Some nausea this morning.) Physical Examination - Vital Signs Temperature: 97.6 F Blood Pressure: 137/65 Pulse: 88 Respirations: 18 Pulse Ox (%): 98 - Physical Exam General: Alert, In no apparent distress, Oriented x3, Cooperative HEENT: Atraumatic, Other (Patient appears better hydrated) Neck: Supple Respiratory: Clear to auscultation bilaterally, Normal air movement Cardiovascular: Normal pulses, Regular rate/rhythm Gastrointestinal: Normal bowel sounds, Soft and benign, Non-distended, No tenderness, No masses, No rebound, No guarding Integumentary: No tenderness/swelling, No erythema, No warmth, No cyanosis Neurological: Normal speech, Normal strength at 5/5 x4 extr, Normal tone, Normal affect - Studies Laboratory Data (last 24 hrs) 11/21/18 13:17: PT 11.9, INR 1.01 11/21/18 13:17: WBC 6.1, Hgb 12.6, Hct 39.6, Plt Count 257 11/21/18 13:17: Sodium 139, Potassium 4.3, BUN 16, Creatinine 1.24, Glucose 84, Magnesium 2.3, Total Bilirubin 1.1 H, AST 73 H, ALT 39, Alkaline Phosphatase 105 , Lipase 49 L Medications List Reviewed: Yes Assessment & Plan Discharge Plan: Home Plan to discharge in: 24 Hours Physician Review Additional Text: Impression: Nausea, vomiting and poor intake likely from malnutrition Hypertension Chronic lymphedema History of colon cancer Morbid obesity GERD Plan: Patient improved. Continue IV antibiotic therapy. Will start medication for GERD. Continue IV fluids. Will physical therapy and occupational therapy assess ambulation. Will check to see if patient tolerates diet today. Patient will require home health and physical therapy at discharge. Will check to see if this can be arranged. Will reassess after lunchtime. If still with increased nausea and poor intake patient may require another day. Will continue with her home medications. Continue to reassess. Time Spent Managing Pts Care (In Minutes): 55
[2018-11-22] MEDS: NYSTATIN PWDR 100000 UNIT/GM TOP SCH (21:00)
[2018-11-22] MEDS: COSOPT EYE EACH EYE SCH (21:26)
[2018-11-22] MEDS: HOME MED 1 EA UNK (Netarsudil Mesylate [Rhopressa] 1 DROP) EACH EYE SCH (21:26)
[2018-11-23] MEDS: ONDANSETRON 4 MG/2 ML VIAL IV PRN ×4 (02:28→20:23)
[2018-11-23 07:05] LABS: Potassium 4.3 mmol/L (3.5-5.1)
[2018-11-23] MEDS: NA CHLORIDE 0.9% 1,000 ML IV SCH ×2 (07:52→09:44)
[2018-11-23] MEDS: NEBIVOLOL HCL 5 MG TAB PO SCH (08:27)
[2018-11-23] MEDS: ENOXAPARIN 40 MG/0.4 ML SQ SCH (08:31)
[2018-11-23] MEDS: ENSURE ENLIVE 237 ML CAN PO SCH ×3 (08:32→20:24)
[2018-11-23] MEDS: NYSTATIN PWDR 100000 UNIT/GM TOP SCH ×2 (08:33→20:24)
[2018-11-23] MEDS: THERA TEARS EYE OPTH SCH (09:00)
[2018-11-23] MEDS ORDERED: HOME MED 1 EA UNK (Nebivolol Hcl [Bystolic] 10 MG) PO SCH (09:00)
[2018-11-23] MEDS: COSOPT EYE EACH EYE SCH ×2 (09:42→20:24)
[2018-11-23] MEDS: FAMOTIDINE 20 MG TAB PO SCH (09:42)
[2018-11-23] MEDS: ASPIRIN EC 81 MG TAB PO SCH (09:42)
--- NOTE | 2018-11-23 10:59 | P.PN ---
Subjective Date of Service: 11/23/18 Primary Care Provider: Dr. Damon; Cardiology-Dr. Jacob Chief Complaint: Weakness, nausea and vomiting Subjective: Other (Patient improving. Some nausea this morning) Physical Examination - Vital Signs Temperature: 97.4 F Blood Pressure: 177/79 Pulse: 98 Respirations: 18 Pulse Ox (%): 99 - Physical Exam General: Alert, In no apparent distress, Oriented x3, Cooperative HEENT: Atraumatic Neck: Supple Respiratory: Clear to auscultation bilaterally, Normal air movement Cardiovascular: Normal pulses, Regular rate/rhythm Gastrointestinal: Normal bowel sounds, Soft and benign, Non-distended, No tenderness, No masses, No rebound, No guarding Musculoskeletal: No tenderness, No warmth Integumentary: No erythema, No warmth, No cyanosis Neurological: Normal speech, Normal strength at 5/5 x4 extr, Normal tone - Studies Microbiology Data (last 24 hrs): 11/21/18 14:47 Catheterized Urine [place] Count - Final 11/21/18 14:47 Catheterized Urine - Final No growth. Medications List Reviewed: Yes Assessment & Plan Discharge Plan: Home Plan to discharge in: 24 Hours Physician Review Additional Text: Impression: Nausea, vomiting and poor intake likely from malnutrition Hypertension Chronic lymphedema History of colon cancer Morbid obesity GERD Plan: Patient continues to improve. Some nausea this morning. Will reassess oral intake. If able to take oral intake well then discharge home today. Home health and physical therapy can be arranged as an outpatient. Patient will require medication for GERD. Recommend follow up with GI as an outpatient to further address. Physical therapy to continue to assess. I will recheck this afternoon for possible discharge. Time Spent Managing Pts Care (In Minutes): 55
[2018-11-23] MEDS ORDERED: SODIUM CHLORIDE 0.9% 10ML INJ IV PRN (12:25)
[2018-11-23] MEDS: FLUCONAZOLE 100mg IVPB 100 MG/50 ML BAG IV SCH (14:35)
[2018-11-23] MEDS: HOME MED 1 EA UNK (Netarsudil Mesylate [Rhopressa] 1 DROP) EACH EYE SCH (20:23)
[2018-11-24] MEDS: ONDANSETRON 4 MG/2 ML VIAL IV PRN ×2 (06:54→21:06)
[2018-11-24] MEDS: NEBIVOLOL HCL 5 MG TAB PO SCH (09:00)
[2018-11-24] MEDS: COSOPT EYE EACH EYE SCH ×2 (09:00→21:00)
[2018-11-24] MEDS ORDERED: Ringers Lactate 1,000 ML IV ONE (11:12)
--- NOTE | 2018-11-24 11:31 | P.PN ---
Subjective Date of Service: 11/24/18 Primary Care Provider: Dr. Damon; Cardiology-Dr. Jacob Chief Complaint: Weakness, nausea and vomiting Subjective: Other (Patient still with slight nausea this morning. Patient to have EGD today.) Physical Examination - Vital Signs Temperature: 97.6 F Blood Pressure: 171/62 Pulse: 85 Respirations: 16 Pulse Ox (%): 99 - Physical Exam General: Alert, In no apparent distress, Oriented x3, Cooperative HEENT: Atraumatic Neck: Supple Respiratory: Clear to auscultation bilaterally, Normal air movement Cardiovascular: Normal pulses, Regular rate/rhythm Gastrointestinal: Normal bowel sounds, Soft and benign, Non-distended, No tenderness, No masses, No rebound, No guarding Neurological: Normal speech, Normal strength at 5/5 x4 extr, Normal tone, Normal affect - Studies Microbiology Data (last 24 hrs): 11/21/18 14:47 Catheterized Urine [place] Count - Final 11/21/18 14:47 Catheterized Urine - Final No growth. Medications List Reviewed: Yes Assessment & Plan Discharge Plan: Home Plan to discharge in: 24 Hours Physician Review Additional Text: Impression: Nausea, vomiting and poor intake likely from malnutrition Hypertension Chronic lymphedema History of colon cancer Morbid obesity GERD Plan: Patient still with nausea. Case discussed at length with GI. Will cancel GI series. GI plans for EGD to further assess her continued nausea. Suspect GERD versus esophageal stenosis versus other. Await findings. Continue physical therapy. Blood pressure still slightly elevated. Will increase Bystolic for better control. Possible discharge later today or likely tomorrow after EGD. Will continue to reassess. Time Spent Managing Pts Care (In Minutes): 55
[2018-11-24] MEDS ORDERED: PROPOFOL 200 MG/20 ML VIAL IV ONE ×2 (12:00→12:01)
[2018-11-24] MEDS ORDERED: LIDOCAINE 1% MPF 5 ML VIAL ONE (12:01)
[2018-11-24] MEDS ORDERED: ONDANSETRON 4 MG/2 ML VIAL ONE (12:39)
[2018-11-24] MEDS: NA CHLORIDE 0.9% 1,000 ML IV SCH ×2 (13:11→23:52)
[2018-11-24] MEDS: THERA TEARS EYE OPTH SCH (13:13)
[2018-11-24] MEDS: PANTOPRAZOLE 40 MG INJ IVP SCH (13:13)
[2018-11-24] MEDS: ENOXAPARIN 40 MG/0.4 ML SQ SCH (13:14)
[2018-11-24] MEDS: ASPIRIN EC 81 MG TAB PO SCH (13:15)
[2018-11-24] MEDS: NYSTATIN PWDR 100000 UNIT/GM TOP SCH ×2 (13:17→21:03)
[2018-11-24] MEDS: ENSURE ENLIVE 237 ML CAN PO SCH ×2 (13:24)
[2018-11-24] MEDS: FLUCONAZOLE 100mg IVPB 100 MG/50 ML BAG IV SCH (13:27)
[2018-11-24] MEDS: ENSURE HIGH PROTEIN 237 ML CAN PO SCH (21:00)
[2018-11-24] MEDS: HOME MED 1 EA UNK (Netarsudil Mesylate [Rhopressa] 1 DROP) EACH EYE SCH (21:08)
--- NOTE | 2018-11-24 23:13 | OP ---
Surgeon: Tom Handley MD Additional Consulting Physician: Tom Handley MD. Procedure To Be Performed: Esophagogastroduodenoscopy. Plan For Anesthesia: Monitored anesthesia care. Indications For Procedure: Nausea and vomiting. Technique: After obtaining informed consent from the patient and explaining risks and complications which include but are not limited to bleeding, infection, perforation, and anesthesia complication, t he patient was placed in the supine position due to her physical status and sedation was given. From then on, the scope was advanced into the mouth and carefully guided up till the second portion of th e duodenum. After the detailed examination and diagnostic maneuvers, the scope and equipment were wi thdrawn and procedure terminated in a safe manner. Findings: Esophagus: No gross lesion seen in the entire esophagus. The Z-line was slightly irregul ar. Biopsies were taken from different esophageal sites to rule out any other pathology. The GE juwan ction was around 37 cm. Stomach: Mild to moderate patchy erythema seen in the antrum. Biopsies taken. In the upper body an d fundus, localized areas of nodular mucosa seen. Multiple biopsies taken from these sites as well a s the surrounding mucosa. The duodenum: The bulb and second portion appeared normal. Complications: None. Tolerance To Anesthesia: Excellent. Postoperative Diagnoses: Gastritis, nodular gastric mucosa, pending biopsies. Plan: 1.Await pathology results. 2.Oral PPI once a day. 3.Resume soft diet. 4.Follow up in the GI Clinic in 1 to 2 weeks for continued care. US/MODL Voice ID: [id number] Report ID: [id number]
[2018-11-25] MEDS: ONDANSETRON 4 MG/2 ML VIAL IV PRN ×3 (02:21→17:43)
[2018-11-25] MEDS: NA CHLORIDE 0.9% 1,000 ML IV SCH ×3 (05:31→23:25)
[2018-11-25] MEDS: ENOXAPARIN 40 MG/0.4 ML SQ SCH (08:45)
[2018-11-25] MEDS: PANTOPRAZOLE 40 MG INJ IVP SCH (08:45)
[2018-11-25] MEDS: NEBIVOLOL HCL 20 MG TABLET PO SCH (08:45)
[2018-11-25] MEDS: ASPIRIN EC 81 MG TAB PO SCH (08:46)
[2018-11-25] MEDS: AMLODIPINE 2.5 MG TAB PO SCH (08:46)
[2018-11-25] MEDS: COSOPT EYE EACH EYE SCH ×2 (08:51→20:39)
[2018-11-25] MEDS: THERA TEARS EYE OPTH SCH (08:53)
[2018-11-25 08:56] LABS: Absolute Lymphocytes (CBC) 0.5 K/uL (0.7-4.9); Basophils % 0.4 % (0-1.3); Eosinophils % 0.1 % (0-4.4); Hematocrit 35.8 % (36.0-45.0); Lymphocytes % 7.5 % (15.3-44.8); MPV 8.4 fL (7.6-11.3); Monocytes % 8.6 % (3.3-12.3); RBC Red Blood Cell Count 3.92 M/uL (3.86-4.86)
[2018-11-25] MEDS: ENSURE HIGH PROTEIN 237 ML CAN PO SCH ×2 (08:58→20:36)
[2018-11-25] MEDS: NYSTATIN PWDR 100000 UNIT/GM TOP SCH ×2 (08:59→20:39)
[2018-11-25 09:06] LABS: Magnesium 2.2 mg/dL (1.8-2.4); Potassium 3.9 mmol/L (3.5-5.1)
[2018-11-25] MEDS ORDERED: POTASSIUM CL SA 10 MEQ TAB PO ONE (10:36)
[2018-11-25 11:06] LABS: Urine White Blood Cell Casts OK
[2018-11-25 11:07] LABS: Anisocytosis 1+; Blood Morphology Comment NOTED (NOT SEEN); Platelet Estimate ADEQ
--- NOTE | 2018-11-25 12:20 | P.PN ---
Subjective Date of Service: 11/25/18 Primary Care Provider: Dr. Damon; Cardiology-Dr. Jacob Chief Complaint: Weakness, nausea and vomiting Subjective: Doing well (Overall improved) Physical Examination - Vital Signs Temperature: 97.8 F Blood Pressure: 179/85 Pulse: 89 Respirations: 18 Pulse Ox (%): 98 - Physical Exam General: Alert, In no apparent distress, Oriented x3, Cooperative HEENT: Atraumatic Neck: Supple Respiratory: Clear to auscultation bilaterally, Normal air movement Cardiovascular: Normal pulses, Regular rate/rhythm Gastrointestinal: Normal bowel sounds, No tenderness, No masses, No rebound, No guarding Neurological: Normal speech, Normal strength at 5/5 x4 extr, Normal tone - Studies Medications List Reviewed: Yes Assessment & Plan Discharge Plan: Other (nursing home facility) Plan to discharge in: 24 Hours Physician Review Additional Text: Impression: Nausea, vomiting and poor intake likely from malnutrition Dysphagia secondary to GERD/gastritis Hypertension Chronic lymphedema History of colon cancer Morbid obesity Plan: Nausea has improved. Patient status post EGD showing gastritis. Biopsy pending. Will discuss with GI for further recommendation if nausea persists. Continue with current medication. Encourage ambulation. Patient agrees to go to skilled facility to continue rehabilitation. Social work to help in this process. Likely discharge to skilled facility within the next day. Time Spent Managing Pts Care (In Minutes): 55
[2018-11-25] MEDS: HOME MED 1 EA UNK (Netarsudil Mesylate [Rhopressa] 1 DROP) EACH EYE SCH (20:36)
[2018-11-26] MEDS: ONDANSETRON 4 MG/2 ML VIAL IV PRN ×2 (01:30→20:35)
[2018-11-26 04:42] LABS: Potassium 3.6 mmol/L (3.5-5.1)
[2018-11-26] MEDS: NA CHLORIDE 0.9% 1,000 ML IV SCH ×3 (08:00→21:20)
[2018-11-26] MEDS ORDERED: POTASSIUM CL SA 10 MEQ TAB PO ONE (09:00)
[2018-11-26] MEDS: COSOPT EYE EACH EYE SCH ×2 (09:00→21:00)
[2018-11-26] MEDS: THERA TEARS EYE OPTH SCH (09:00)
[2018-11-26] MEDS: NYSTATIN 500,000 UNIT/5 ML UDC PO SCH ×3 (09:00→14:24)
[2018-11-26] MEDS: ENSURE HIGH PROTEIN 237 ML CAN PO SCH ×2 (09:00→21:00)
--- NOTE | 2018-11-26 09:01 | P.PN ---
Subjective Date of Service: 11/26/18 Primary Care Provider: Dr. Damon; Cardiology-Dr. Jacob Chief Complaint: Weakness, nausea and vomiting Subjective: Other (Patient still with nausea. No significant abdominal pain noted.) Physical Examination - Vital Signs Temperature: 97.0 F Blood Pressure: 164/63 Pulse: 86 Respirations: 16 Pulse Ox (%): 96 - Physical Exam General: Alert, In no apparent distress, Oriented x3, Cooperative HEENT: Atraumatic Neck: Supple Respiratory: Clear to auscultation bilaterally, Normal air movement Cardiovascular: Normal pulses, Regular rate/rhythm Gastrointestinal: Normal bowel sounds, Soft and benign, Non-distended, No tenderness, No masses, No rebound, No guarding Integumentary: No erythema, No warmth, No cyanosis Neurological: Normal speech, Normal strength at 5/5 x4 extr, Normal tone - Studies Medications List Reviewed: Yes Assessment & Plan Discharge Plan: Other (assisted facility) Plan to discharge in: 48 Hours Physician Review Additional Text: Impression: Nausea, vomiting and poor intake likely from malnutrition Dysphagia secondary to GERD/gastritis Acute renal insufficiency secondary to nausea/vomiting Hypertension Chronic lymphedema History of colon cancer Morbid obesity Plan: Patient still with persistent nausea. Patient had EGD showing gastritis on Saturday. Pathology shows chronic gastritis. No malignancy noted. Will keep the patient NPO. Case discussed with GI. Will check abdominal ultrasound to evaluate gallbladder. Patient may require HIDA scan as well. Will consult surgery to further evaluate. Await findings from gallbladder ultrasound. Patient being evaluated for skilled placement. Time Spent Managing Pts Care (In Minutes): 55
[2018-11-26] MEDS: ENOXAPARIN 40 MG/0.4 ML SQ SCH (09:35)
[2018-11-26] MEDS: PANTOPRAZOLE 40 MG INJ IVP SCH (09:35)
[2018-11-26] MEDS: NYSTATIN PWDR 100000 UNIT/GM TOP SCH ×2 (09:36→22:01)
[2018-11-26 10:08] LABS: Absolute Lymphocytes (CBC) 0.3 K/uL (0.7-4.9); Basophils % 0.3 % (0-1.3); Eosinophils % 0.4 % (0-4.4); Hematocrit 35.2 % (36.0-45.0); MPV 8.6 fL (7.6-11.3); Monocytes % 8.4 % (3.3-12.3); RBC Red Blood Cell Count 3.94 M/uL (3.86-4.86)
[2018-11-26 10:27] LABS: Albumin 3.3 g/dL (3.4-5.0); Bilirubin Direct 0.4 mg/dL (0-0.2); Bilirubin Total 0.9 mg/dL (0.2-1.0); Protein, Total 6.9 g/dL (6.4-8.2)
[2018-11-26 10:50] LABS: Anisocytosis 2+; Blood Morphology Comment NOTED (NOT SEEN); Platelet Estimate ADEQ; Poikilocytosis 1+; Urine White Blood Cell Casts OK
--- NOTE | 2018-11-26 11:46 | RAD REPORT ---
EXAM DESCRIPTION: US - Abdomen Exam Complete - 11/26/2018 11:21 am CLINICAL HISTORY: Abdominal pain/nausea COMPARISON: 2013 FINDINGS: Exam somewhat limited secondary to body habitus The liver has an increased echotexture. Cholecystectomy common bile duct measures 1 centimeter The pancreas is not well seen secondary to overlying bowel gas The right kidney measures 12 centimeters with a normal echotexture. The left kidney measures 9 centimeters with a normal echotexture. The spleen measures 10 centimeters. The abdominal aorta and inferior vena cava not well seen secondary to overlying bowel gas not IMPRESSION: Increased hepatic echotexture consistent with fatty infiltration Prominent common bile duct can be physiologic in this patient status post cholecystectomy. Pathology such as a stricture or nonvisualized stone can also result in this appearance. This should be correla tatum clinically and with appropriate lab values
[2018-11-26] MEDS ORDERED: KCL 20 MEQ/100 mL IVPB 20 MEQ/100 ML BAG IV SCH (12:00)
[2018-11-26] MEDS: AMLODIPINE 2.5 MG TAB PO SCH (14:24)
[2018-11-26] MEDS: ASPIRIN EC 81 MG TAB PO SCH (14:24)
[2018-11-26] MEDS: NEBIVOLOL HCL 20 MG TABLET PO SCH (14:25)
--- NOTE | 2018-11-26 20:12 | RAD REPORT ---
EXAM DESCRIPTION: MRICholangiogram11/26/2018 8:00 pm CLINICAL HISTORY: Abdominal pain COMPARISON: 2013 MRCP TECHNIQUE: Magnetic resonance cholangiogram was performed. Source images were reviewed and reconstru cted at 360 degrees rotation FINDINGS: Cholecystectomy. A fluid collection within the gallbladder fossa is not noted The biliary tree is normal caliber without a filling defect. Normal pancreatic duct IMPRESSION: Cholecystectomy. Unremarkable exam
[2018-11-26] MEDS: HOME MED 1 EA UNK (Netarsudil Mesylate [Rhopressa] 1 DROP) EACH EYE SCH (22:03)
[2018-11-27] MEDS: ONDANSETRON 4 MG/2 ML VIAL IV PRN ×4 (04:06→23:28)
[2018-11-27 04:50] LABS: Absolute Lymphocytes (CBC) 0.4 K/uL (0.7-4.9); Albumin 3.2 g/dL (3.4-5.0); Bilirubin Total 0.8 mg/dL (0.2-1.0); Lymphocytes % 6.5 % (15.3-44.8); Potassium 3.8 mmol/L (3.5-5.1)
[2018-11-27 04:57] LABS: Basophils % 0.4 % (0-1.3); Eosinophils % 0.2 % (0-4.4); Hematocrit 34.5 % (36.0-45.0); MPV 9.5 fL (7.6-11.3); Monocytes % 9.3 % (3.3-12.3); RBC Red Blood Cell Count 3.84 M/uL (3.86-4.86)
[2018-11-27] MEDS: NA CHLORIDE 0.9% 1,000 ML IV SCH ×3 (05:18→21:21)
[2018-11-27 05:38] LABS: Blood Morphology Comment NOTED (NOT SEEN); Burr Cells 1+; Platelet Estimate ADEQ; Urine White Blood Cell Casts OK
[2018-11-27] MEDS: COSOPT EYE EACH EYE SCH ×2 (09:00→21:00)
[2018-11-27] MEDS: ENSURE HIGH PROTEIN 237 ML CAN PO SCH ×2 (09:00→21:00)
[2018-11-27] MEDS ORDERED: POTASSIUM 25 MEQ EFFERV TAB PO ONE (09:00)
[2018-11-27] MEDS: THERA TEARS EYE OPTH SCH (09:00)
[2018-11-27] MEDS: PANTOPRAZOLE 40 MG INJ IVP SCH (09:43)
[2018-11-27] MEDS: NEBIVOLOL HCL 20 MG TABLET PO SCH (09:45)
[2018-11-27] MEDS: ASPIRIN EC 81 MG TAB PO SCH (09:45)
[2018-11-27] MEDS: AMLODIPINE 2.5 MG TAB PO SCH (09:46)
[2018-11-27] MEDS: ENOXAPARIN 30 MG/0.3 ML SQ SCH (09:48)
[2018-11-27] MEDS: NYSTATIN PWDR 100000 UNIT/GM TOP SCH ×2 (09:50→21:00)
[2018-11-27] MEDS ORDERED: KCL 20 MEQ/100 mL IVPB 20 MEQ/100 ML BAG IV SCH (10:00)
--- NOTE | 2018-11-27 14:29 | P.PN ---
Subjective Date of Service: 11/27/18 Primary Care Provider: Dr. Damon; Cardiology-Dr. Jacob Chief Complaint: Weakness, nausea and vomiting Subjective: Other (Patient still reports some nausea. No significant abdominal pain.) Physical Examination - Vital Signs Temperature: 97.7 F Blood Pressure: 175/78 Pulse: 80 Respirations: 20 Pulse Ox (%): 100 - Physical Exam General: Alert, In no apparent distress, Oriented x3, Cooperative HEENT: Atraumatic Neck: Supple Respiratory: Clear to auscultation bilaterally, Normal air movement Cardiovascular: Normal pulses, Regular rate/rhythm Gastrointestinal: Normal bowel sounds, Soft and benign, Non-distended, No tenderness, No masses, No rebound, No guarding Neurological: Normal speech, Normal strength at 5/5 x4 extr, Normal tone - Studies Medications List Reviewed: Yes Assessment & Plan Discharge Plan: Home Plan to discharge in: 48 Hours Physician Review Additional Text: Impression: Nausea, vomiting and poor intake etiology unknown with mild malnutrition Dysphagia secondary to GERD/gastritis Acute renal insufficiency secondary to nausea/vomiting Hypertension Chronic lymphedema History of colon cancer Morbid obesity Plan: Nausea, vomiting and poor intake etiology unknown with mild malnutrition: Continue IV fluids. Will start scheduled doses of Reglan to see if there is improvement. Ultrasound and MRCP unremarkable. Lipase negative. LFTs unremarkable. Medications reviewed to see if there are any potential side effects. None noted. Will discuss with GI for further recommendation. Continue physical therapy. Await to see if patient responds with Reglan. Patient being evaluated for skilled placement. Await approval. Likely discharge in the next 24-48 hr with clinical improvement. I will turn the service over to Dr. Canales tomorrow. I will go over the plan of care with her. Dysphagia secondary to GERD/gastritis: Pathology reviewed. Chronic gastritis noted. No H pylori. No malignancy. Continue Protonix. Continue as above. Will discuss with GI. Acute renal insufficiency secondary to nausea/vomiting: Continue IV fluids. Will monitor and adjust appropriately. Hypertension: Continue medication. Chronic lymphedema: Continue as above. History of colon cancer: Overall stable. Morbid obesity: Continue as above Time Spent Managing Pts Care (In Minutes): 55
[2018-11-27] MEDS: METOCLOPRAMIDE 5 MG TAB PO SCH ×2 (17:35→21:20)
[2018-11-27] MEDS: HYDRALAZINE HCL 20 MG/ML VIAL IV PRN (21:22)
[2018-11-28] MEDS: ONDANSETRON 4 MG/2 ML VIAL IV PRN (06:51)
[2018-11-28] MEDS: HYDRALAZINE HCL 20 MG/ML VIAL IV PRN ×2 (06:52→12:02)
[2018-11-28 07:08] LABS: Absolute Lymphocytes (CBC) 0.3 K/uL (0.7-4.9); Basophils % 0.2 % (0-1.3); Eosinophils % 0.3 % (0-4.4); Hematocrit 38.6 % (36.0-45.0); Lymphocytes % 6.5 % (15.3-44.8); MPV 9.1 fL (7.6-11.3); Monocytes % 8.7 % (3.3-12.3)
[2018-11-28 07:15] LABS: Bilirubin Total 1.2 mg/dL (0.2-1.0); Magnesium 2.2 mg/dL (1.8-2.4); Potassium 3.8 mmol/L (3.5-5.1); Protein, Total 7.1 g/dL (6.4-8.2)
[2018-11-28] MEDS: ENOXAPARIN 30 MG/0.3 ML SQ SCH (07:54)
[2018-11-28] MEDS: NYSTATIN PWDR 100000 UNIT/GM TOP SCH (07:55)
[2018-11-28] MEDS: PANTOPRAZOLE 40 MG INJ IVP SCH (07:55)
[2018-11-28] MEDS: THERA TEARS EYE OPTH SCH (07:56)
[2018-11-28] MEDS: ENSURE HIGH PROTEIN 237 ML CAN PO SCH (07:57)
[2018-11-28 08:54] VITALS: O2SAT 98
[2018-11-28] MEDS: COSOPT EYE EACH EYE SCH (09:00)
[2018-11-28] MEDS ORDERED: KCL 20 MEQ/100 mL IVPB 20 MEQ/100 ML BAG IV SCH (09:00)
[2018-11-28] MEDS: NA CHLORIDE 0.9% 1,000 ML IV SCH ×2 (09:29)
[2018-11-28] MEDS: AMLODIPINE 2.5 MG TAB PO SCH (09:31)
[2018-11-28] MEDS: ASPIRIN EC 81 MG TAB PO SCH (09:31)
[2018-11-28] MEDS: NEBIVOLOL HCL 20 MG TABLET PO SCH (09:31)
[2018-11-28] MEDS: METOCLOPRAMIDE 5 MG TAB PO SCH (09:32)
[2018-11-28 12:12] VITALS: TEMP 98.1
--- NOTE | 2018-11-28 12:34 | P.DS ---
Admission Date: 11/26/18 Discharge Date: 11/28/18 Primary Care Provider: Dr. Damon; Cardiology-Dr. 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 Patient has been having nausea and vomiting for the past several days. She has had poor appetite. Poor intake noted. Patient during this time has noted difficulty walking with increased falls. She reports being in the hospital ER on November 06 and sent home. Since that time she has been getting weak. Patient with underlying lymphedema, anemia, history of colon cancer and hypertension. In the ER patient was evaluated. Vital signs stable. No fever noted. Room-air saturations within normal range. White count 6.1, hemoglobin 12.6. Sodium 139 , potassium 4.3, BUN of 14, creatinine 1.24 with a GFR 51. Glucose 84. Troponin unremarkable. BMP unremarkable. Acute abdominal series showed no acute findings. Patient admitted for observation. When I saw the patient in the ER, caregiver was at bedside. Patient appears stable at this time. Patient does not appear septic. She does appeared dry and dehydrated. Patient reports that she is mainly bed-bound at this time. It has been quite some time likely over a month since she is walked on rolling. She has used a walker in the past. Hospital Course: Overall during the hospital stay patient remained stable Patient was initially admitted to the hospital for nausea vomiting and diarrhea. Patient had GI consultation done here in the hospital. Patient had an EGD done. EGD was consistent with gastritis with nodular mucosa. Biopsies were collected. Patient did well overall postprocedure. Patient also had a gastric emptying study done here in the hospital which she was not able to be tolerated. Patient most likely has delayed gastric emptying due to prolonged immobility and pain medication. Patient was educated extensively regarding the disease process and the need to be more mobile and judicial use of pain medication. Patient demonstrate understanding at that time. Patient was also referred to a senior care facility for physical therapy and was accepted it would [facility] and thus was transferred there for further care. Patient's nausea vomiting did resolve here on Reglan and thus was prescribed Reglan 10 mg b.i.d. Vital Signs/Physical Exam: Temp Pulse Resp BP Pulse Ox 98.1 F 82 16 170/82 H 97 11/28/18 12:00 11/28/18 12:00 11/28/18 12:00 11/28/18 12:00 11/28/18 12:00 General: Alert, In no apparent distress HEENT: Atraumatic, PERRLA, EOMI Neck: Supple, JVD not distended Respiratory: Clear to auscultation bilaterally, Normal air movement Cardiovascular: Regular rate/rhythm, Normal S1 S2 Gastrointestinal: Normal bowel sounds, No tenderness Musculoskeletal: No tenderness Integumentary: No rashes Neurological: Normal speech, Normal tone, Normal affect Lymphatics: No axilla or inguinal lymphadenopathy Laboratory Data at Discharge: WBC 5.2 K/uL (4.3-10.9) 11/28/18 06:45 Hgb 12.2 g/dL (12.0-15.0) 11/28/18 06:45 Hct 38.6 % (36.0-45.0) 11/28/18 06:45 Plt Count 185 K/uL (152-406) D 11/28/18 06:45 PT 11.9 SECONDS (9.5-12.5) 11/21/18 13:17 INR 1.01 11/21/18 13:17 Sodium 141 mmol/L (136-145) 11/28/18 06:45 Potassium 3.8 mmol/L (3.5-5.1) 11/28/18 06:45 BUN 16 mg/dL (7-18) 11/28/18 06:45 Creatinine 1.11 mg/dL (0.55-1.3) 11/28/18 06:45 Glucose 83 mg/dL (74-106) 11/28/18 06:45 Magnesium 2.2 mg/dL (1.8-2.4) 11/28/18 06:45 Total Bilirubin 1.2 mg/dL (0.2-1.0) H 11/28/18 06:45 AST 243 U/L (15-37) H 11/28/18 06:45 ALT 76 U/L (12-78) 11/28/18 06:45 Alkaline Phosphatase 85 U/L (45-117) 11/28/18 06:45 Lipase 144 U/L (73-393) 11/26/18 09:54 Home Medications: Dorzolamide/Timolol/Pf [Cosopt Pf Eye Drops] 1 each EACH EYE BID 11/21/18 Nebivolol HCl [Bystolic] 10 mg PO DAILY 11/21/18 Netarsudil Mesylate [Rhopressa] 1 drop EACH EYE BEDTIME 11/21/18 Tafluprost/Pf [Zioptan 0.0015% Eye Drops] 1 each EACH EYE BEDTIME 11/21/18 Thera Tears 1 drop EACH EYE DAILY 11/21/18 Metoclopramide HCl [Reglan] 10 mg PO BID #60 tablet 11/28/18 New Medications: Metoclopramide HCl [Reglan] 10 mg PO BID #60 tablet Diet: Regular Activity: Ad dulce
[2018-11-28 13:45] VITALS: BP 157/78
[2018-11-28] MEDS ORDERED: NYSTATIN 500,000 UNIT/5 ML UDC PO SCH (14:00)
--- NOTE | 2018-11-28 14:31 | P.PN ---
Subjective Date of Service: 11/27/18 Primary Care Provider: Dr. Damon; Cardiology-Dr. Jacob Chief Complaint: Weakness, nausea and vomiting Subjective: No new changes Review of Systems 10-point ROS is otherwise unremarkable Gastrointestinal: Nausea, Abdominal Pain (no), Diarrhea (no), Distention, Constipation (o), Melena (no), Hematochezia (no), As per HPI Physical Examination - Vital Signs Temperature: 98.1 F Blood Pressure: 157/78 Pulse: 80 Respirations: 16 Pulse Ox (%): 97 - Physical Exam General: Alert, In no apparent distress, Oriented x3, Cooperative HEENT: PERRLA, EOMI, Sclerae nonicteric Neck: Supple Gastrointestinal: Soft and benign, No rebound, No guarding Musculoskeletal: No tenderness Integumentary: No rashes Neurological: Normal speech - Studies Medications List Reviewed: Yes Assessment And Plan - Plan no surgical intervention planned at this time Continue GI work up Diet OOB Physician Review Additional Text: Impression: Nausea, vomiting and poor intake etiology unknown with mild malnutrition Dysphagia secondary to GERD/gastritis Acute renal insufficiency secondary to nausea/vomiting Hypertension Chronic lymphedema History of colon cancer Morbid obesity Plan: Nausea, vomiting and poor intake etiology unknown with mild malnutrition: Continue IV fluids. Will start scheduled doses of Reglan to see if there is improvement. Ultrasound and MRCP unremarkable. Lipase negative. LFTs unremarkable. Medications reviewed to see if there are any potential side effects. None noted. Will discuss with GI for further recommendation. Continue physical therapy. Await to see if patient responds with Reglan. Patient being evaluated for skilled placement. Await approval. Likely discharge in the next 24-48 hr with clinical improvement. I will turn the service over to Dr. Canales tomorrow. I will go over the plan of care with her. Dysphagia secondary to GERD/gastritis: Pathology reviewed. Chronic gastritis noted. No H pylori. No malignancy. Continue Protonix. Continue as above. Will discuss with GI. Acute renal insufficiency secondary to nausea/vomiting: Continue IV fluids. Will monitor and adjust appropriately. Hypertension: Continue medication. Chronic lymphedema: Continue as above. History of colon cancer: Overall stable. Morbid obesity: Continue as above
[2018-11-28] MEDS ORDERED: METOCLOPRAMIDE 5 MG TAB PO SCH (21:00)
[2018-11-29 03:54] LABS: HBsAG Nonreactive (Nonreactive); Hepatitis A IgM Antibody Nonreactive
== END 2018-11-28 15:11 | DRG 887 ==
LOC: ER 12:11 → ERHOLD 14:59 → 2ND 15:40 → ERHOLD 16:16 → 2ND 16:18 → 4TH 22:06 → OBSVTOIN 11-26 09:58
PROVIDERS: ADMIT Family Medicine; ATTEND Family Medicine
PROC: 0DB78ZX Excision of Stomach, Pylorus, Via Natural or Artificial Opening Endoscopic, Diagnostic (ICD-10-PCS; 2018-11-24)
PROC: 0DB68ZX Excision of Stomach, Via Natural or Artificial Opening Endoscopic, Diagnostic (ICD-10-PCS; 2018-11-24)
PROC: 0DB58ZX Excision of Esophagus, Via Natural or Artificial Opening Endoscopic, Diagnostic (ICD-10-PCS; principal; 2018-11-24 11:15)
DX: F50.89 Other specified eating disorder (principal); E44.1 Mild protein-calorie malnutrition; Z68.42 Body mass index [BMI] 45.0-49.9, adult; K21.9 Gastro-esophageal reflux disease without esophagitis; K29.50 Unspecified chronic gastritis without bleeding; R13.10 Dysphagia, unspecified; E86.0 Dehydration; N28.9 Disorder of kidney and ureter, unspecified; K30 Functional dyspepsia; I10 Essential (primary) hypertension; I89.0 Lymphedema, not elsewhere classified; E66.01 Morbid (severe) obesity due to excess calories; Z85.038 Personal history of other malignant neoplasm of large intestine; Z90.49 Acquired absence of other specified parts of digestive tract
CPT/HCPCS: 36415; 51702; 74022; 74181; 76700; 80048; 80053; 80074; 80076; 81003; 83690; 83735; 83880; 84439; 84443; 84484; 85025; 85610; 87086; 87088; 88305; 88312; 93005; 96360; 96361; 97110; 97161; 97166; 97530; 99284; C9113; G0378; J0360; J1450; J1650; J2405; J2704; J7030

== ENCOUNTER 2018-12-01 09:03 | Emergency (ER) | payer MEDICARE ==
[2018-12-01] MEDS ORDERED: FAMOTIDINE 20 MG/2 ML VIAL IV ONE (09:34)
[2018-12-01] MEDS ORDERED: ONDANSETRON 4 MG/2 ML VIAL ONE (09:34)
[2018-12-01 10:05] LABS: Absolute Lymphocytes (CBC) 0.6 K/uL (0.7-4.9); Basophils % 0.2 % (0-1.3); Eosinophils % 0.5 % (0-4.4); Hematocrit 37.8 % (36.0-45.0); Lymphocytes % 14.8 % (15.3-44.8); MPV 8.5 fL (7.6-11.3); RBC Red Blood Cell Count 4.22 M/uL (3.86-4.86)
[2018-12-01 10:25] LABS: Bilirubin Direct 1.5 mg/dL (0-0.2); Bilirubin Total 2.4 mg/dL (0.2-1.0); Potassium 3.9 mmol/L (3.5-5.1); Protein, Total 7.4 g/dL (6.4-8.2)
[2018-12-01] MEDS ORDERED: PANTOPRAZOLE 40 MG INJ ONE (10:40)
[2018-12-01] MEDS ORDERED: PANTOPRAZOLE INJ 80 MG in NA CHLORIDE 0.9% 250 ML IV ONE (10:45)
--- NOTE | 2018-12-01 10:45 | RAD REPORT ---
EXAM DESCRIPTION: CTAbdomen Pelvis W Contrast - 12/01/2018 10:32 am CLINICAL HISTORY: Abdominal pain. GI BLEED COMPARISON: CT ABD PELVIS W CONTRAST dated 12/15/2013; CT ABD PELVIS W CONTRAST dated 11/19/2012; [place] ngiogram dated 11/26/2018; Abdomen Exam Complete dated 11/26/2018 TECHNIQUE: Biphasic CT imaging of the abdomen and pelvis was performed with 100 ml non-ionic IV cont rast. All CT scans are performed using dose optimization technique as appropriate and may include automated exposure control or mA/KV adjustment according to patient size. FINDINGS: Linear opacities are present in the medial left lung base likely subsegmental atelectasis or small area of aspiration.Mild fluid is seen within the distal esophagus. Mild fatty liver is seen. No focal liver mass or biliary dilatation. Cholecystectomy clips are seen. The spleen, pancreas, adrenal glands and kidneys are within normal limits. No free air, free fluid or abscess. Colonic distention with air is seen with mild narrowing at the si te of a surgical anastomosis in the sigmoid colon. This may represent a mild stricture in this region . The appendix is normal. No evidence of significant lymphadenopathy. Moderately severe lumbar degenerative changes. IMPRESSION: The colon appears distended with air and fluid with focal narrowing seen at the sigmoid anastomotic site suggesting the presence of a [id number] stricture in this region. Mild linear atelectasis or aspiration identified medial left lung base.
--- NOTE | 2018-12-01 11:02 | RAD REPORT ---
EXAM DESCRIPTION: CT - Soft Tissue Neck W/Contr - 12/01/2018 10:32 am CLINICAL HISTORY: Soft tissue swelling and edema, difficulty swallowing, hematemesis TECHNIQUE: During dynamic enhancement using 100 milliliters nonionic IV contrast, axial 5 millimeter thick images of the neck were obtained. All CT scans are performed using dose optimization technique as appropriate and may include automated exposure control or mA/KV adjustment according to patient size. FINDINGS: Intracranial portion the examination is unremarkable. No suspicious globe or orbital zee nt finding. Anterior globe calcifications are present not seen as acute. There is mineralization georgi g the lateral inferior margin of the left globe. Paranasal sinuses are clear. No pharyngeal mucosal mass or asymmetry. Parapharyngeal fat is normal. Tonsillar and tongue base tiss ue within normal limits as well. No soft palate or epiglottis thickening. No vocal cord edema, mass o r asymmetry seen. The parotid, submandibular and thyroid gland tissue show no suspicious findings. Soft tissues anterior to the mandible do appear edematous. No abscess confirmed. No foreign body iden tified. Muscles and fatty tissues of the floor the mouth do not appear abnormal. No finding to confir m or suspect Yayo's angina. Cervical spine degenerative changes are present. IMPRESSION: Edema changes are present anterior to the midline mandible without extension into the fl oor the mouth. No abscess or bone destructive process seen. Remainder the study, as detailed above, without significant or suspicious finding.
--- NOTE | 2018-12-01 11:29 | ER ---
Nurse's Notes [facility] Name: Trang Burr Age: 73 yrs Sex: Female : 1945 Arrival Date: 12/01/2018 Time: 09:05 Bed 5 Private MD: Diagnosis: Bowel strictures, Upper GI Bleed Presentation: 12/01 09:01 Presenting complaint: EMS states: vomited a small amount of coffee ground emesis this sv morning, dried blood noted in the mouth. Pt is at [facility] for rehab. BP 180/88 HR-97 97% RA BS-69 97.4. Transition of care: patient was received from another setting of care (long-term care facility), [facility]. Onset of symptoms was December 01, 2018. Risk Assessment: Do you want to hurt yourself or someone else? Patient reports no desire to harm self or others. Initial Sepsis Screen: Does the patient meet any 2 criteria? No. Patient's initial sepsis screen is negative. Does the patient have a suspected source of infection? No. Patient's initial sepsis screen is negative. Care prior to arrival: Medication(s) given: Tylenol, this morning Glucose check: 69. 09:01 Method Of Arrival: EMS: [facility] sv 09:01 Acuity: REYNALDO 3 sv Historical: - Allergies: 09:12 Ampicillin; sv - Home Meds: 09:12 dorzolamide-timolol ophthalmic ophthalmic [Active]; nebivolol oral 10 mg daily oral sv [Active]; Reglan 10 mg Oral tab twice a day [Active]; rhopressa solution 1 drop both eyes bedtime [Active]; TheraTears 1 drop both eyes daily ophthalmic [Active]; Zioptan (PF) 0.0015 % ophthalmic dpet 1 drop both eyes bedtime [Active]; - PMHx: 09:12 Cellulitis; colon cancer; Hypertension; Lymphadema; sv - PSHx: 09:12 Bowel resection; colostomy with reversal; sv - Immunization history:: Adult Immunizations up to date. - Social history:: Smoking status: Patient/guardian denies using tobacco. - Ebola Screening: : No symptoms or risks identified at this time. Screenin:48 Abuse screen: Denies threats or abuse. Denies injuries from another. Nutritional sv screening: No deficits noted. Tuberculosis screening: No symptoms or risk factors identified. Fall Risk No fall in past 12 months (0 pts). No secondary diagnosis (0 pts). IV access (20 points). Ambulatory Aid- None/Bed Rest/Nurse Assist (0 pts). Gait- Normal/Bed Rest/Wheelchair (0 pts) Mental Status- Oriented to own ability (0 pts). Total San Fall Scale indicates No Risk (0-24 pts). Assessment: 09:05 General: Appears in no apparent distress. uncomfortable, obese, unkempt, incontinent of sv urine. Behavior is cooperative. Pain: Complains of pain in tongue Pain currently is 5 out of 10 on a pain scale. Quality of pain is described as burning, Is intermittent. Neuro: Level of Consciousness is awake, alert, obeys commands, Oriented to person, place, time, situation, Moves all extremities. Speech muffled. Respiratory: Airway is patent Respiratory effort is even, unlabored, Respiratory pattern is regular, symmetrical. GI: Abdomen is obese, Reports vomiting. EENT: Oral mucosa is dry. dried blood noted . Derm: Skin is normal, black. 09:35 Reassessment: Pt's linen and brief from [place] were soiled in urine. Pt given a bed bath, sv linen and gown changed. Clean brief placed under pt. Pt was laying supine while being changed and clean and placed upright, pt vomited about 20-30 mls of coffee ground emesis. Dr Goyal informed. Pt placed at about a 70 degree angle. 10:44 Reassessment: Patient appears in no apparent distress at this time. No changes from sv previously documented assessment. Patient and/or family updated on plan of care and expected duration. Pain level reassessed. Patient is alert, oriented x 3, equal unlabored respirations, skin warm/dry/pink. 11:22 Reassessment: Patient appears in no apparent distress at this time. No changes from sv previously documented assessment. Pt appears to be sleeping with eyes closed at this time. Family is at the bedside, updated on POC. Informed family that Dr Goyal will back to give results of everything. 12:36 Reassessment: Patient appears in no apparent distress at this time. No changes from sv previously documented assessment. Patient and/or family updated on plan of care and expected duration. Pain level reassessed. Patient is alert, oriented x 3, equal unlabored respirations, skin warm/dry/pink. Family and pt updated on transfer process. 13:12 Reassessment: Patient appears in no apparent distress at this time. No changes from sv previously documented assessment. Patient and/or family updated on plan of care and expected duration. Pain level reassessed. Patient is alert, oriented x 3, equal unlabored respirations, skin warm/dry/pink. 13:44 Reassessment: Nurse unavailable to take report, will call back. sv 14:31 Reassessment: Patient appears in no apparent distress at this time. Patient and/or sv family updated on plan of care and expected duration. Pain level reassessed. Patient is alert, oriented x 3, equal unlabored respirations, skin warm/dry/pink. 14:32 Reassessment: Report given to [place] from EMS. sv Vital Signs: 09:13 BP 164 / 79; Pulse 95 MON; Resp 22; Temp 98.3; Pulse Ox 99% ; Weight 113 kg; Height 5 sv ft. 1 in. (154.94 cm); Pain 5/10; 10:11 BP 134 / 66; Pulse 86; Resp 20; Pulse Ox 99% ; sv 10:46 BP 150 / 74; Pulse 95; Resp 20; Pulse Ox 97% ; sv 11:36 BP 137 / 74; Pulse 93 MON; Resp 20; Pulse Ox 98% on R/A; sv 12:15 BP 121 / 71; Pulse 92; Resp 18; Pulse Ox 100% ; sv 13:45 BP 137 / 72; Pulse 91; Resp 20; Pulse Ox 97% on R/A; sv 14:32 BP 130 / 77; Pulse 90; Resp 20; Pulse Ox 99% ; sv 09:13 Body Mass Index 47.07 (113.00 kg, 154.94 cm) sv 09:13 Sinus Rhythm sv 11:36 Sinus Rhythm sv ED Course: 09:05 Patient arrived in ED. sv 09:06 Mamie Campbell RN is Primary Nurse. sv 09:08 Triage completed. sv 09:12 Huey Goyal MD is Attending Physician. kdr 09:13 EKG done, by industrial machine system technician. reviewed by Huey Goyal MD. at1 09:13 Arm band placed on. sv 09:15 copying machine repairer on. Pulse ox on. NIBP on. Door closed. Warm blanket given. Pillow sv given. Head of bed elevated. 09:20 Initial lab(s) drawn, by me, sent to lab. Inserted saline lock: 20 gauge in right sg antecubital area, using aseptic technique. Blood collected. 09:30 Served as a insurance checker during rectal exam. sv 09:35 Patient has correct armband on for positive identification. Placed in gown. Bed in low sv position. Call light in reach. Side rails up X2. 09:47 Basic Metabolic Panel Sent. sv 09:47 CBC with Diff Sent. sv 09:47 Creatinine for Radiology Sent. sv 09:47 Hepatic Function Sent. sv 10:33 CT Soft Tissue Neck W/contr In Process Unspecified. EDMS 10:33 CT Abd/Pelvis - IV Contrast Only In Process Unspecified. EDMS 10:44 Awaiting lab results, Awaiting radiology results. Awaiting re-evaluation by ER provider.sv 11:28 Dwaine Bacon MD is Hospitalizing Provider. kdr 11:37 Awaiting bed assignment. sv 14:32 Patient transferred, IV remains in place. intact. sv Administered Medications: 09:22 Drug: Pepcid 20 mg Route: IVP; Site: right antecubital; sg 10:00 Follow up: Response: No adverse reaction sv 09:22 Drug: Zofran 4 mg Route: IVP; Site: right antecubital; sg 10:00 Follow up: Response: No adverse reaction sv 10:22 CANCELLED (Physician Discretion): ProTONIX 40 mg PO once sv 10:44 Drug: ProTONIX 8 mg/hr Route: IV; Rate: 25 ml/hr; Site: right antecubital; sv 15:00 Follow up: Response: No adverse reaction; IV Status: Infusion continued upon transfer sv 10:44 Drug: ProTONIX 80 mg Route: IVP; Site: right antecubital; sv 11:37 Follow up: Response: No adverse reaction sv Point of Care Testing: Guaiac: 09:30 Stool Guaiac: Positive; Stool Hemoccult Control: Pass; sv 09:[address] Goyal sv Outcome: 11:29 Decision to Hospitalize by Provider. kdr 12:13 ER care complete, transfer ordered by . kdr 14:00 Transferred by ground EMS to [facility], Transfer form completed. sv X-rays sent w/ patient. Note: Report given to Felisha ADAMES 14:00 Condition: stable 14:00 Instructed on the need for admit. 15:07 Patient left the ED. sv Signatures: Dispatcher [employer] Mamie Lackey RN RN Bud Smith RN RN sg Huey Goyal MD MD [facility] Kinjal Hays, phys therapist EKG Tat1 Corrections: (The following items were deleted from the chart) 09:15 09:13 BP 164 / 79; Pulse 95bpm; Resp 22bpm; Pulse Ox 99%; Temp 98.3F; Pain 5/10; sv sv 11:36 09:13 BP 164 / 79; Pulse 95bpm; Resp 22bpm; Pulse Ox 99%; Temp 98.3F; 113 kg; Height 5 sv ft. 1 in.; BMI: 47.0; Pain 5/10; sv
--- NOTE | 2018-12-01 11:30 | EDPHYS ---
Physician Documentation [facility] Name: Trang Burr Age: 73 yrs Sex: Female : 1945 Arrival Date: 12/01/2018 Time: 09:05 Bed 5 Private MD: ED Physician Huey Goyal HPI: 12/01 09:24 This 73 yrs old Black Female presents to ER via EMS with complaints of Vomiting - kdr coffee ground emesis. 09:24 The patient was discharged from this facility on Saturday. At that time, she said she had kdr mouth soreness. Last night, she states she asked the for a Tylenol. The nurse brought two and the patient claims to have informed the nurse that she could not swallow two pills at the same time without gagging. She states that the nurse told her to try anyway and she has been vomiting ever since. She now feels that her face is swollen and her lips and tongue are also swollen. She denies SOB or trouble breathing . Onset: The symptoms/episode began/occurred suddenly, last night. The patient has not experienced similar symptoms in the past. The patient has been recently seen by a physician: The patient has been recently been admitted at [facility], was discharged last week. Historical: - Allergies: 09:12 Ampicillin; sv - Home Meds: 09:12 dorzolamide-timolol ophthalmic ophthalmic [Active]; nebivolol oral 10 mg daily oral sv [Active]; Reglan 10 mg Oral tab twice a day [Active]; rhopressa solution 1 drop both eyes bedtime [Active]; TheraTears 1 drop both eyes daily ophthalmic [Active]; Zioptan (PF) 0.0015 % ophthalmic dpet 1 drop both eyes bedtime [Active]; - PMHx: 09:12 Cellulitis; colon cancer; Hypertension; Lymphadema; sv - PSHx: 09:12 Bowel resection; colostomy with reversal; sv - Immunization history:: Adult Immunizations up to date. - Social history:: Smoking status: Patient/guardian denies using tobacco. - Ebola Screening: : No symptoms or risks identified at this time. ROS: 09:24 Constitutional: Negative for fever, chills, and weight loss, Eyes: Negative for injury, kdr pain, redness, and discharge, Neck: Negative for injury, pain, and swelling, Cardiovascular: Negative for chest pain, palpitations, and edema, Respiratory: Negative for shortness of breath, cough, wheezing, and pleuritic chest pain, Back: Negative for injury and pain, : Negative for injury, bleeding, discharge, and swelling, MS/Extremity: Negative for injury and deformity, Skin: Negative for injury, rash, and discoloration, Neuro: Negative for headache, weakness, numbness, tingling, and seizure activity. Psych: Negative for depression, anxiety, suicide ideation, homicidal ideation, and hallucinations, Allergy/Immunology: Negative for hives, rash, and allergies, Endocrine: Negative for neck swelling, polydipsia, polyuria, polyphagia, and marked weight changes, Hematologic/Lymphatic: Negative for swollen nodes, abnormal bleeding, and unusual bruising. 09:24 ENT: Positive for Bleeding and swelling around her lower lip and tongue. There is fresh blood crusted on her lips - there is no obviouis sources, Negative for injury or acute deformity. 09:24 Abdomen/GI: Positive for nausea, vomiting, Negative for diarrhea, constipation, abdominal cramps, abdominal distension, anorexia, dysphagia, black/tarry stool, rectal pain, rectal bleeding, bowel incontinence, flatulence. Exam: 09:24 Constitutional: This is a well developed, well nourished patient who is awake, alert, kdr and in no acute distress. ENT: Nares patent. No nasal discharge, no septal abnormalities noted. Tympanic membranes are normal and external auditory canals are clear. Oropharynx with no redness, swelling, or masses, exudates, or evidence of obstruction, uvula midline. Mucous membranes moist. Vital Signs: 09:13 BP 164 / 79; Pulse 95 MON; Resp 22; Temp 98.3; Pulse Ox 99% ; Weight 113 kg; Height 5 sv ft. 1 in. (154.94 cm); Pain 5/10; 10:11 BP 134 / 66; Pulse 86; Resp 20; Pulse Ox 99% ; sv 10:46 BP 150 / 74; Pulse 95; Resp 20; Pulse Ox 97% ; sv 11:36 BP 137 / 74; Pulse 93 MON; Resp 20; Pulse Ox 98% on R/A; sv 12:15 BP 121 / 71; Pulse 92; Resp 18; Pulse Ox 100% ; sv 13:45 BP 137 / 72; Pulse 91; Resp 20; Pulse Ox 97% on R/A; sv 14:32 BP 130 / 77; Pulse 90; Resp 20; Pulse Ox 99% ; sv 09:13 Body Mass Index 47.07 (113.00 kg, 154.94 cm) sv 09:13 Sinus Rhythm sv 11:36 Sinus Rhythm sv MDM: 11:29 Patient medically screened. kdr 11:29 Data reviewed: vital signs, nurses notes, lab test result(s), radiologic studies. kdr Counseling: I had a detailed discussion with the patient and/or guardian regarding: the historical points, exam findings, and any diagnostic results supporting the discharge/admit diagnosis. 12/01 09:12 Order name: Basic Metabolic Panel kdr 12/01 09:12 Order name: CBC with Diff kdr 12/01 09:12 Order name: Creatinine for Radiology kdr 12/01 09:12 Order name: Hepatic Function kdr 12/01 09:12 Order name: Lipase; Complete Time: 11:06 kdr 12/01 09:12 Order name: Type And Screen; Complete Time: 11:06 kdr 12/01 09:13 Order name: Basic Metabolic Panel; Complete Time: 11:06 EDMS 12/01 09:13 Order name: CBC with Automated Diff; Complete Time: 10:14 EDMS 12/01 09:13 Order name: Creatinine (Radiology Only); Complete Time: 11:06 EDMS 12/01 09:13 Order name: Liver (Hepatic) Function; Complete Time: 11:06 EDMS 12/01 09:38 Order name: Occult Blood--Ancillary bd 12/01 10:12 Order name: CT Soft Tissue Neck W/contr; Complete Time: 11:06 kdr 12/01 10:12 Order name: CT Abd/Pelvis - IV Contrast Only; Complete Time: 11:06 kdr 12/01 11:25 Order name: ABO/RH no charge; Complete Time: 12:39 EDMS 12/01 09:12 Order name: IV Saline Lock; Complete Time: 09:47 kdr 12/01 09:12 Order name: Labs collected and sent; Complete Time: 09:47 kdr 12/01 13:27 Order name: EKG Electrocardiogram EDMS Administered Medications: 09:22 Drug: Pepcid 20 mg Route: IVP; Site: right antecubital; sg 10:00 Follow up: Response: No adverse reaction sv 09:22 Drug: Zofran 4 mg Route: IVP; Site: right antecubital; sg 10:00 Follow up: Response: No adverse reaction sv 10:22 CANCELLED (Physician Discretion): ProTONIX 40 mg PO once sv 10:44 Drug: ProTONIX 8 mg/hr Route: IV; Rate: 25 ml/hr; Site: right antecubital; sv 15:00 Follow up: Response: No adverse reaction; IV Status: Infusion continued upon transfer sv 10:44 Drug: ProTONIX 80 mg Route: IVP; Site: right antecubital; sv 11:37 Follow up: Response: No adverse reaction sv Point of Care Testing: Guaiac: 09:30 Stool Guaiac: Positive; Stool Hemoccult Control: Pass; sv 09:[address] Goyal sv Disposition: 12/01/18 12:13 Transfer ordered to [facility]. Diagnosis is Bowel strictures, Upper GI Bleed. - Reason for transfer: Higher level of care. - Accepting physician is UNk. - Condition is Serious. - Problem is new. - Symptoms have improved. Signatures: Dispatcher [employer] EDMamie De La Cruz RN RN sv Bud Smith RN RN Heuy Goyla MD MD kdr Taqueria Jasso PA PA [id number] Corrections: (The following items were deleted from the chart) 10:22 10:12 ProTONIX 40 mg PO once ordered. kdr sv 12:11 11:29 Hospitalization Ordered by Dwaine Bacon MD for Inpatient Admission. Preliminary kdr diagnosis is Upper GI BLeeding. Bed requested for Telemetry/MedSurg (Inpatient). Status is Inpatient Admission. Condition is Fair. Problem is new. Symptoms are unchanged. UTI on Admission? No. kdr 15:07 12:13 12/01/2018 12:13 Transfer ordered to [facility]. Diagnosis is sv Bowel strictures, Upper GI Bleed. Reason for transfer: Higher level of care. Accepting physician is UNk. Condition is Serious. Problem is new. Symptoms have improved. kdr
[2018-12-01 15:33] VITALS: TEMP 98.3
[2018-12-01 15:41] VITALS: BP 130/77; O2SAT 99
--- NOTE | 2018-12-01 15:43 | EKG ---
Test Date: 2018-12-01 Test Time: 09:07:58 Operator Engineer: MOUNIKA MEASUREMENT RESULTS: Intervals: Rate: 93 OH: 154 QRSD: 70 QT: 350 QTc: 435 Jackson: P: 52 OH: 154 QRS: 12 T: 24 INTERPRETIVE STATEMENTS: Normal sinus rhythm Normal ECG Compared to ECG 11/21/2018 12:13:36 No significant changes Electronically Signed On 12-01-18 15:42:14 CDT by Nando Jacob
== END 2018-12-01 15:07 | disposition short-term general hospital (02) ==
LOC: ER 09:03
DX: K56.609 Unspecified intestinal obstruction, unspecified as to partial versus complete obstruction (principal); I10 Essential (primary) hypertension; Z85.038 Personal history of other malignant neoplasm of large intestine; Z88.1 Allergy status to other antibiotic agents
CPT/HCPCS: 96365; 93005; 85025; 80048; 36415; 86900; 86850; 86901; 80076; 82272; 83690; 70491; 74177; 96375; 99285; 96366; Q9967; C9113 ×2; J2405